=== PATIENT | female | born 1925 | race Caucasian/White ===

== ENCOUNTER → 2016-05-11 | Outpatient (CLI) | payer OTHER ==
[~2016-05-11] MED LIST: ACET-1311 PO; ACET650S10 RE; ASPCH81 PO; ATOR10TA88 PO; ATRINS INH; BISA10SU3 PR; CHOL1000 PO; CLOP1TAB5 PO; CYAN10005 PO; METH4PAK PO; MRLP17 PO; OMEP20CA9 PO; OXYC1TAB3 PO; RSPODT5 PO; SNK PO; XPNINS1255 INH
[2016-05-11 10:16] LABS: HEMATOCRIT 37.8 % (37-47); MEAN CELL VOLUME 92.9 fL (80-100); MEAN CORPUSCULAR HEMOGLOBIN 31.4 pg (25-34); MEAN CORPUSCULAR HGB CONC 33.9 g/dl (32-36); MEAN PLATELET VOLUME 11.9 fL (7.4-10.4); PLATELET COUNT 204 K/uL (130-400); RED BLOOD COUNT 4.07 M/uL (4.2-5.4); WHITE BLOOD COUNT 5.08 K/uL (4.8-10.8)
[2016-05-11 10:25] LABS: ALT/SGPT 16 U/L (12-78); BLOOD UREA NITROGEN 25 mg/dl (7-18); BUN/CREATININE RATIO 25.2 (10-20); CALCIUM 9.6 mg/dl (8.5-10.1); CARBON DIOXIDE 24 mmol/L (21-32); CHLORIDE 105 mmol/L (98-107); CREATININE 0.99 mg/dl (0.60-1.20); GLUCOSE 87 mg/dl (70-99); POTASSIUM 4.3 mmol/L (3.5-5.1); SODIUM 139 mmol/L (136-145)
[2016-05-11 10:35] LABS: ALKALINE PHOSPHATASE 65 U/L (45-117); AST/SGOT 19 U/L (15-37)
--- NOTE | 2016-05-25 13:47 | CODING QUERY MEDICAL NECESSITY ---
CQSUPPORTING DIAGNOSIS NEEDED A supporting diagnosis is required for the test/procedure performed on this patient in order for us to be reimbursed by the patient's insurance. Please provide a supporting diagnosis for the following test/procedure listed below next to the test name along with your signature. *If there is no additional diagnosis for this patient that would support the following test/procedure please document that below next to the test/procedure. Test(s)/Procedure(s) that require a supporting diagnosis: DOS 05/08/16 VITAMIN B12 Provider Signature: Date: Thank you Hillary Gross [employer] Once completed, please kindly fax back to [phone] For questions please call [phone]
== END ==
LOC: C.LABFOXDH 09:41
PROVIDERS: ATTEND Internal Medicine
DX: F06.8 Other specified mental disorders due to known physiological condition (principal); D51.8 Other vitamin B12 deficiency anemias

== ENCOUNTER → 2016-06-22 | Outpatient (CLI) | payer OTHER ==
[~2016-06-22] MED LIST changes: +ATOR10TA82 PO; -ATOR10TA88 PO
== END | disposition home or self-care (01) ==
LOC: C.LABFOXDH 16:37
PROVIDERS: ATTEND Internal Medicine
DX: N30.00 Acute cystitis without hematuria (principal)

== ENCOUNTER → 2016-07-14 | Outpatient (CLI) | payer OTHER ==
[2016-07-14 09:39] LABS: BASO % 0.7 %; BASO ABS # 0.04 K/uL (0-0.2); COMPLETE YES; HEMATOCRIT 38.1 % (37-47); LYMPH ABS # 1.55 K/uL (1.2-3.4); MEAN CORPUSCULAR HEMOGLOBIN 30.4 pg (25-34); MEAN CORPUSCULAR HGB CONC 33.1 g/dl (32-36); MEAN PLATELET VOLUME 11.4 fL (7.4-10.4); MONO % 9.7 %; NEUT % 57.6 %; PLATELET COUNT 216 K/uL (130-400); RED BLOOD COUNT 4.14 M/uL (4.2-5.4); WHITE BLOOD COUNT 5.34 K/uL (4.8-10.8)
[2016-07-14 09:49] LABS: CALCIUM 9.4 mg/dl (8.5-10.1)
[2016-07-14 09:54] LABS: BLOOD UREA NITROGEN 21 mg/dl (7-18); CARBON DIOXIDE 26 mmol/L (21-32); CHLORIDE 108 mmol/L (98-107); GLUCOSE 91 mg/dl (70-99); POTASSIUM 3.8 mmol/L (3.5-5.1); SODIUM 141 mmol/L (136-145)
== END | disposition home or self-care (01) ==
LOC: C.LABFOXDH 09:22
PROVIDERS: ATTEND Internal Medicine
DX: R41.82 Altered mental status, unspecified (principal)

== ENCOUNTER → 2016-07-15 | Outpatient (CLI) | payer OTHER | END | disposition home or self-care (01) | LOC: C.LABFOXDH 09:24 | PROVIDERS: ATTEND Internal Medicine | DX: R41.82 Altered mental status, unspecified (principal) ==

== ENCOUNTER → 2016-07-22 | Outpatient (CLI) | payer OTHER ==
[~2016-07-22] MED LIST changes: +OPTIRAY 320 IV PRN
--- NOTE | 2016-07-22 11:29 | DIAGNOSTIC IMAGING REPORT ---
HEAD CT WITH AND WITHOUT INTRAVENOUS CONTRAST HISTORY: MEMORY LOSS TECHNIQUE: Multiaxial CT images of the head were performed both before and after the intravenous administration of contrast. COMPARISON STUDY: None. FINDINGS: Old bilateral cerebellar infarcts, right greater than left. Old bilateral thalamic infarcts. Mild atrophic changes within the brain. There is no mass, hematoma, midline shift, or acute infarct. Extensive periventricular white matter hypodensity. This is nonspecific but favors advanced microvascular ischemic change. The calvarium and skull base are intact. Paranasal sinuses and mastoid air cells are clear. No abnormal enhancement. IMPRESSION: 1. No acute intracranial abnormality. 2. Old infarcts as described above. 3. Presumed advanced microvascular ischemic changes. Electronically signed by: Dereje Levin M.D. 07/22/2016 11:27 AM Dictated Date/Time: 07/22/2016 11:23 AM
== END ==
LOC: C.CTS 11:05
PROVIDERS: ATTEND Nurse Practitioner Family
DX: R41.0 Disorientation, unspecified (principal); R26.9 Unspecified abnormalities of gait and mobility

== ENCOUNTER 2016-07-23 13:48 | Inpatient (IN) | payer OTHER ==
[~2016-07-23] VITALS: Ht 134.6 cm; Wt 40.0 kg
[2016-07-23] MEDS ORDERED: OXYCODONE HCL IR 5 MG TAB (IMMEDIATE RELEASE) PO STA (14:37)
--- NOTE | 2016-07-23 14:41 | EMERGENCY ROOM VISIT NOTE ---
History Report prepared by Anita: Danilo Martin Under the Supervision of: Dr. Tulio Nicholson D.O. First contact with patient: 14:18 Chief Complaint: HEADACHE Stated Complaint: HEADACHE History of Present Illness The patient is an 89 year old female who presents to the Emergency Room from [facility] with complaints of episodes of headaches that started 2 days ago. Per the patient's sister, when the headache attack hits, the patient's whole body jerks and it is like the patient is being struck with a lightning bolt. The patient's headache is localized on her left side, and during the attacks, the patient clenches her left eye. The episodes last around 30 seconds , and she is continuing to have them intermittently. She cannot lift her arms or legs during the attacks. The patient has also been having abdominal pain for 2 days. Per the nursing staff, the patient started being treated for a UTI 4 days ago. She is normally confused, but has been more confused recently, so she had a CT scan. The scan revealed "aging". 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 She has hypertension. Source of History: patient, family, nursing staff Onset: 2 days ago Position: head (left side) Symptom Intensity: whole body jerks and it is like patient is being struck by lightning bolt when headache comes on Timing: other (intermittent episodes) Associated Symptoms: + abdominal pain Note: Associated symptoms: Clinches left eye during attacks, cannot raise arms or legs during attacks. More confused than normal recently. Review of Systems See HPI for pertinent positives & negatives. A total of 10 systems reviewed and were otherwise negative. Past Medical & Surgical Medical Problems: (1) Confusion (2) HTN (hypertension) Family History Family history omitted secondary to patient's advanced age. Social History Smoking Status: Never Smoker Marital Status: Housing Status: intermediate Occupation Status: retired Current/Historical Medications Scheduled Atorvastatin (Lipitor), 10 MG PO DAILY Cholecalciferol (Vitamin D3), 1 TAB PO WK Clopidogrel Bisulfate (Plavix), 75 MG PO DAILY Cyanocobalamin (Vitamin B-12), 1,000 MCG PO DAILY Methylprednisolone (Medrol Dosepak), 0 PO DAILY Omeprazole (Prilosec), 20 MG PO DAILY Scheduled PRN Acetaminophen (Tylenol), 1 SUPP RE Q4H PRN for Pain or Fever Acetaminophen (Tylenol), 650 MG PO Q4H PRN for Pain or Fever Bisacodyl (Dulcolax), 1 SUPP VA Q2D PRN for Constipation Oxycodone Ir (Roxicodone Ir), 0.5-1 TAB PO Q4H PRN for Severe Pain Allergies Coded Allergies: No Known Allergies (Unverified , 07/23/16) Physical Exam Vital Signs Date Time Temp Pulse Resp B/P Pulse Ox O2 Delivery O2 Flow Rate FiO2 07/23/16 14:38 81 07/23/16 14:02 88 Room Air 07/23/16 14:02 88 Room Air 07/23/16 13:54 36.1 84 17 160/94 92 Nasal Cannula 2.0 Physical Exam GENERAL: Patient is awake, alert, somewhat anxious appearing. EYES: The conjunctivae are clear. The pupils are round and reactive. EARS, NOSE, MOUTH AND THROAT: The nose is without any evidence of any deformity. Mucous membranes are moist tongue is midline. Tenderness over left temporal artery. Left temporal artery appeared enlarged compared to right. NECK: The neck is nontender and supple. RESPIRATORY: Normal respiratory effort is noted there is no evidence of wheezing rhonchi or rales CARDIOVASCULAR: Regular rate and rhythm noted there no murmurs rubs or gallops normal S1 normal S2 GASTROINTESTINAL: The abdomen is soft. Bowel sounds are present in all quadrants. Abdomen is nontender MUSCULOSKELETAL/EXTREMITIES: There is no evidence of gross deformity full range of motion is noted in the hips and shoulders SKIN: There is no obvious evidence of any rash. There are no petechiae, pallor or cyanosis noted. NEUROLOGIC: Patient is awake alert and oriented x3 strength is symmetric. Medical Decision & Procedures ER Provider Diagnostic Interpretation: CT results as stated below per my review and radiologist interpretation. HEAD CTA HISTORY: Mental status change mental status change TECHNIQUE: Multiaxial CT images of the head were performed both before and after the intravenous administration of contrast to evaluate the major cerebral vessels. Maximum intensity projection images were also obtained. COMPARISON: 07/22/2016 FINDINGS: There is no mass, hematoma, midline shift, or acute infarct. Visualized intracranial internal carotid arteries, distal vertebral arteries, and basilar artery are widely patent. There is no significant stenosis, occlusion, or aneurysm seen within the bilateral ACAs,. Partial truncation of the distal arterial vessels left middle cerebral arterial distribution. Age of this finding is uncertain.. Considerable chronic small vessel change. Multiple old periventricular infarct unchanged in the prior study. No new or interval finding. No significant postcontrast enhancement. IMPRESSION: No significant stenosis, occlusion, or aneurysm within the [place] of [place]. Mild truncation of the peripheral vasculature of the left middle cerebral arterial distribution of indeterminate age. Compromised exam due to considerable patient motion.. Considerable chronic small vessel change. No acute intracranial abnormality. No change from the prior study. Electronically signed by: James Key M.D. 07/23/2016 4:23 PM Dictated Date/Time: 07/23/2016 4:[address] SCAN OF THE ABDOMEN AND PELVIS WITHOUT IV CONTRAST CLINICAL HISTORY: Right-sided abdominal pain. COMPARISON STUDY: No priors. TECHNIQUE: CT scan of the abdomen and pelvis is performed from the lung bases to the proximal femora. Images are reviewed in the axial, sagittal, and coronal planes. IV contrast was not administered for this examination as per the referring clinician. Note that the examination was performed in suboptimal fashion without oral and IV contrast. Automated dose control exposure was utilized. The examination is significantly degraded by motion artifact. CT DOSE: 2282.49 mGy.cm FINDINGS: Lung bases: The heart is enlarged and without pericardial effusion. The coronary arteries are densely calcified. There is diminished attenuation of the cardiac blood pool as compared to the myocardium suggesting anemia. 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 There is bibasilar scarring versus atelectasis. No airspace consolidation or pleural effusion is identified. Liver: The unenhanced liver is normal in size, contour, and attenuation. Fatty infiltration is suggested adjacent to the falciform ligament. There is no intrahepatic biliary ductal dilatation. Gallbladder: Unremarkable. Spleen: Normal in size and attenuation. Pancreas: Atrophic and grossly unremarkable but not well assessed. Adrenal glands: Unremarkable. Kidneys: The unenhanced kidneys are atrophic. There is mild bilateral hydroureteronephrosis, possibly related to the distended bladder. No obstructing lesion or calculus is identified. No kidney stones are seen. There is no evidence of contour deforming renal mass lesion. Abdominal vasculature: The abdominal aorta is normal in course and caliber noting moderate to advanced atherosclerotic calcification. Bowel: There are postoperative changes from sigmoid colon resection with colocolonic anastomosis. No bowel obstruction is seen. There is moderate to severe constipation. The appendix is not clearly identified. Peritoneum: There is no intraperitoneal free air or abdominal ascites. Lymphadenopathy: None. Pelvic viscera: The bladder is distended but otherwise grossly unremarkable. The uterus is surgically absent. No adnexal lesion is seen. Skeletal structures: The skeletal structures are osteopenic. No lytic or blastic lesions are seen. There is moderate to advanced lumbosacral spondylosis. Sclerotic change is noted in the pubic symphysis. IMPRESSION: 1. Suboptimal examination without oral and IV contrast. The examination is also significantly degraded by motion artifact. 2. Moderate to severe constipation. No bowel obstruction is identified. 3. The bladder is distended. 4. There is mild bilateral hydroureteronephrosis, possibly related to the distended bladder. No renal calculus or obstructing lesion is clearly seen. 5. Cardiomegaly. 6. There is aneurysmal dilatation of the partially imaged ascending thoracic aorta which measures up to 4.1 cm. 7. Additional findings as above. Electronically signed by: Charlie Griffin M.D. 07/23/2016 4:24 PM Dictated Date/Time: 07/23/2016 4:18 PM Laboratory Results 07/23/16 15:12 Red Blood Count 4.51, Mean Corpuscular Volume 91.4, Mean Corpuscular Hemoglobin 30.2, Mean Corpuscular Hemoglobin Concent 33.0, Mean Platelet Volume 11.4, Neutrophils (%) (Auto) 68.9, Lymphocytes (%) (Auto) 21.6, Monocytes (%) (Auto) 7.6, Eosinophils (%) (Auto) 1.3, Basophils (%) (Auto) 0.5, Neutrophils # (Auto) 5.35, Lymphocytes # (Auto) 1.68, Monocytes # (Auto) 0.59, Eosinophils # (Auto) 0.10, Basophils # (Auto) 0.04 07/23/16 15:12 Test 07/23/16 14:20 07/23/16 15:12 Urine Color ORANGE Urine Appearance CLEAR (CLEAR) Urine pH 7.0 (4.5-7.5) Urine Specific [place] 1.009 (1.000-1.030) Urine Protein NEG (NEG) Urine Glucose (UA) NEG (NEG) Urine Ketones NEG (NEG) Urine Occult Blood NEG (NEG) Urine Nitrite NEG (NEG) Urine Bilirubin NEG (NEG) Urine Urobilinogen NEG (NEG) Urine Leukocyte Esterase TRACE (NEG) Urine WBC (Auto) 1-5 /hpf (0-5) Urine RBC (Auto) 0-4 /hpf (0-4) Urine Hyaline Casts (Auto) 1-5 /lpf (0-5) Urine Epithelial Cells (Auto) 20-30 /lpf (0-5) Urine Bacteria (Auto) NEG (NEG) White Blood Count 7.77 K/uL (4.8-10.8) Red Blood Count 4.51 M/uL (4.2-5.4) Hemoglobin 13.6 g/dL (12.0-16.0) Hematocrit 41.2 % (37-47) Mean Corpuscular Volume 91.4 fL (80-100) Mean Corpuscular Hemoglobin 30.2 pg (25-34) Mean Corpuscular Hemoglobin Concent 33.0 g/dl (32-36) Platelet Count 213 K/uL (130-400) Mean Platelet Volume 11.4 fL (7.4-10.4) Neutrophils (%) (Auto) 68.9 % Lymphocytes (%) (Auto) 21.6 % Monocytes (%) (Auto) 7.6 % Eosinophils (%) (Auto) 1.3 % Basophils (%) (Auto) 0.5 % Neutrophils # (Auto) 5.35 K/uL (1.4-6.5) Lymphocytes # (Auto) 1.68 K/uL (1.2-3.4) Monocytes # (Auto) 0.59 K/uL (0.11-0.59) Eosinophils # (Auto) 0.10 K/uL (0-0.5) Basophils # (Auto) 0.04 K/uL (0-0.2) RDW Standard Deviation 45.3 fL (36.4-46.3) RDW Coefficient of Variation 13.6 % (11.5-14.5) Immature Granulocyte % (Auto) 0.1 % Immature Granulocyte # (Auto) 0.01 K/uL (0.00-0.02) Erythrocyte Sedimentation Rate 9 mm/hr (0-21) Prothrombin Time 10.7 SECONDS (9.0-12.0) Prothromb Time International Ratio 1.0 (0.9-1.1) Activated Partial Thromboplast Time 24.7 SECONDS (21.0-31.0) Partial Thromboplastin Ratio 1.0 Anion Gap 6.0 mmol/L (3-11) Est Creatinine Clear Calc Drug Dose 23.1 ml/min Estimated GFR () 63.2 Estimated GFR (Non- 54.5 BUN/Creatinine Ratio 15.6 (10-20) Calcium Level 9.2 mg/dl (8.5-10.1) Total Bilirubin 0.4 mg/dl (0.2-1) Direct Bilirubin 0.1 mg/dl (0-0.2) Aspartate Amino Transf (AST/SGOT) 18 U/L (15-37) Alanine Aminotransferase (ALT/SGPT) 18 U/L (12-78) Alkaline Phosphatase 80 U/L (45-117) Troponin I 0.027 ng/ml (0-0.045) C-Reactive Protein < 0.29 mg/dl (0-0.29) Total Protein 7.2 gm/dl (6.4-8.2) Albumin 3.6 gm/dl (3.4-5.0) Lipase 305 U/L (73-393) Laboratory results per my review. Medications Administered Medications (Trade) Dose Ordered Sig/Álvaro Route Start Time Stop Time Status Last Admin Dose Admin Pantoprazole Sodium/Syringe (Protonix Inj/ Syringe) 10 ml @ 5 mls/min NOW ONCE IV 07/23/16 14:45 07/23/16 14:46 DC 07/23/16 14:45 5 MLS/MIN Dexamethasone Sodium Phosphate (Decadron Inj) 10 mg NOW ONCE IV 07/23/16 14:45 07/23/16 14:46 DC 07/23/16 14:45 10 MG Oxycodone HCl (Roxicodone Immediate Rel Tab) 5 mg NOW STAT PO 07/23/16 14:37 07/23/16 14:38 DC 07/23/16 14:37 5 MG ECG Indication: other (headache) Rate (beats per minute): 84 Rhythm: sinus rhythm Findings: 1st degree AV block, no ectopy, other (no acute ST segment abnormalities) Comparison ECG Date: no prior available ED Course 1430: The patient was evaluated in room B7. A complete history and physical examination were performed. 1437: Ordered Roxicodone Immediate Rel Tab 5 mg PO. 1445: Ordered Decadron Inj 10 mg IV, Pantoprazole Sodium 40mg/Syringe 10 ml @ 5 mls/min IV. 1649: I reevaluated the patient and told her that we are waiting to talk to the neurologist. 1724: I discussed the patient with Dr. Getachew BARNEY neurology - she wants the patient to get an MRI. 1733: I talked to the patient's daughter, and she would like the patient to have an MRI. 1800: The patient was signed out to Dr. Lin at the end of shift. Medical Decision Prior records/ancillary studies reviewed. Triage Nursing notes reviewed and agree them. Differential diagnosis: Etiologies such as migraine headache, meningitis, sinusitis, CO exposure, ICH, SAH, infection, tumor, headache, sinus thrombosis, arterial dissection, as well as others were entertained. The patient is an 89-year-old female who presented to the emergency department for an evaluation of headache. She had very acute short bursts of headache which appeared to be over the left temporal region. There was no signs of shingles. The patient did appear to have significant tenderness over the left temporal artery. A family member stated that the patient had a similar condition. When she still lives in [place] and was treated with steroids. The patient was treated with pain medication IV steroids and Protonix in the emergency Department. She was reevaluated multiple times. I discussed the patient's laboratory and radiographic studies with her and her family members. I also discussed his case with the on-call papo Soriano neurologist. 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 It is also possible is represent early shingles or possibly even trigeminal neuralgia. At the request of the neurologist. An MRI was ordered. This is pending at the time of dictation. Patient was signed out to the evening. Your physician. Please see her note for final plan and disposition. Consults Time Called: 1710 Consulting Physician: Dr. Getachew BARNEY neurology Returned Call: 1724 I discussed the patient with Dr. Getachew BARNEY neurology - she wants the patient to get an MRI. Impression Primary Impression: Headache Scribe Attestation The scribe's documentation has been prepared under my direction and personally reviewed by me in its entirety. I confirm that the note above accurately reflects all work, treatment, procedures, and medical decision making performed by me. Departure Information Dispostion Still a Patient (signed out to Dr. Lin) Prescriptions Oxycodone Ir (Roxicodone Ir) 5 Mg Tab 0.5-1 TAB PO Q4H Y for Severe Pain, #20 TAB Prov: Tulio Nicholson, DO 07/23/16 Omeprazole (PRILOSEC) 20 Mg Cap 20 MG PO DAILY, #30 CAP Prov: Tulio Nicholson, DO 07/23/16 Methylprednisolone (MEDROL DOSEPAK) 4 Mg Jj 0 PO DAILY, #1 PKT Prov: Tulio Nicholson, DO 07/23/16 Referrals Dennis Heredia M.D. (PCP) Patient Instructions My [facility] Problem Qualifiers Primary Impression: Headache Headache type: unspecified Headache chronicity pattern: episodic headache Intractability: not intractable Qualified Codes: R51 - Headache
[2016-07-23] MEDS ORDERED: OPTIRAY 320 IV PRN (14:45)
[2016-07-23] MEDS ORDERED: DEXAMETHASONE SOD INJ 10 MG/ML VIAL IV ONE (14:45)
[2016-07-23] MEDS ORDERED: PANTOprazole INJ 40 MG in SYRINGE 0 ML IV ONE (14:45)
[2016-07-23 14:54] LABS: URINE APPEARANCE CLEAR (CLEAR); URINE BILIRUBIN NEG (NEG); URINE COLOR ORANGE; URINE EPITHELIAL CELL AUTO 20-30 /lpf (0-5); URINE NITRITE NEG (NEG); URINE SPECIFIC GRAVITY 1.009 (1.000-1.030); UROBILINOGEN NEG (NEG)
[2016-07-23 14:55] LABS: MANUAL MICROSCOPIC REQUIRED? NO; REVIEW REQ? NO
[2016-07-23 15:21] LABS: BASO % 0.5 %; BASO ABS # 0.04 K/uL (0-0.2); COMPLETE YES; EOS % 1.3 %; HEMATOCRIT 41.2 % (37-47); IG% 0.1 %; LYMPH % 21.6 %; LYMPH ABS # 1.68 K/uL (1.2-3.4); MEAN CELL VOLUME 91.4 fL (80-100); MEAN CORPUSCULAR HEMOGLOBIN 30.2 pg (25-34); MEAN PLATELET VOLUME 11.4 fL (7.4-10.4); MONO % 7.6 %; NEUT % 68.9 %; PLATELET COUNT 213 K/uL (130-400); RED BLOOD COUNT 4.51 M/uL (4.2-5.4); WHITE BLOOD COUNT 7.77 K/uL (4.8-10.8)
[2016-07-23 15:30] LABS: PROTHROMBIN TIME (PATIENT) 10.7 SECONDS (9.0-12.0)
[2016-07-23 15:39] LABS: ALT/SGPT 18 U/L (12-78); AST/SGOT 18 U/L (15-37); BLOOD UREA NITROGEN 15 mg/dl (7-18); BUN/CREATININE RATIO 15.6 (10-20); CALCIUM 9.2 mg/dl (8.5-10.1); CARBON DIOXIDE 28 mmol/L (21-32); CHLORIDE 106 mmol/L (98-107); CREATININE 0.93 mg/dl (0.60-1.20); GLUCOSE 98 mg/dl (70-99); POTASSIUM 3.5 mmol/L (3.5-5.1); SODIUM 140 mmol/L (136-145)
[2016-07-23 15:44] LABS: ALKALINE PHOSPHATASE 80 U/L (45-117); C-REACTIVE PROTEIN < 0.29 mg/dl (0-0.29)
[2016-07-23] MEDS ORDERED: CHOL1000 PO (16:23)
[2016-07-23] MEDS ORDERED: ACET-1311 PO (16:23)
[2016-07-23] MEDS ORDERED: CLOP1TAB5 PO (16:23)
[2016-07-23] MEDS ORDERED: CYAN10005 PO (16:23)
[2016-07-23] MEDS ORDERED: BISA10SU3 PR (16:23)
[2016-07-23] MEDS ORDERED: ATOR10TA82 PO (16:23)
[2016-07-23] MEDS ORDERED: ACET650S10 RE (16:23)
--- NOTE | 2016-07-23 16:25 | DIAGNOSTIC IMAGING REPORT ---
HEAD CTA HISTORY: Mental status change mental status change TECHNIQUE: Multiaxial CT images of the head were performed both before and after the intravenous administration of contrast to evaluate the major cerebral vessels. Maximum intensity projection images were also obtained. COMPARISON: 07/22/2016 FINDINGS: There is no mass, hematoma, midline shift, or acute infarct. Visualized intracranial internal carotid arteries, distal vertebral arteries, and basilar artery are widely patent. There is no significant stenosis, occlusion, or aneurysm seen within the bilateral ACAs,. Partial truncation of the distal arterial vessels left middle cerebral arterial distribution. Age of this finding is uncertain.. Considerable chronic small vessel change. Multiple old periventricular infarct unchanged in the prior study. No new or interval finding. No significant postcontrast enhancement. IMPRESSION: No significant stenosis, occlusion, or aneurysm within the [place] of [place]. Mild truncation of the peripheral vasculature of the left middle cerebral arterial distribution of indeterminate age. Compromised exam due to considerable patient motion.. Considerable chronic small vessel change. No acute intracranial abnormality. No change from the prior study. Electronically signed by: James Key M.D. 07/23/2016 4:23 PM Dictated Date/Time: 07/23/2016 4:20 PM
--- NOTE | 2016-07-23 16:26 | DIAGNOSTIC IMAGING REPORT ---
CT SCAN OF THE ABDOMEN AND PELVIS WITHOUT IV CONTRAST CLINICAL HISTORY: Right-sided abdominal pain. COMPARISON STUDY: No priors. TECHNIQUE: CT scan of the abdomen and pelvis is performed from the lung bases to the proximal femora. Images are reviewed in the axial, sagittal, and coronal planes. IV contrast was not administered for this examination as per the referring clinician. Note that the examination was performed in suboptimal fashion without oral and IV contrast. Automated dose control exposure was utilized. The examination is significantly degraded by motion artifact. CT DOSE: 2282.49 mGy.cm FINDINGS: Lung bases: The heart is enlarged and without pericardial effusion. The coronary arteries are densely calcified. There is diminished attenuation of the cardiac blood pool as compared to the myocardium suggesting anemia. 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 There is bibasilar scarring versus atelectasis. No airspace consolidation or pleural effusion is identified. Liver: The unenhanced liver is normal in size, contour, and attenuation. Fatty infiltration is suggested adjacent to the falciform ligament. There is no intrahepatic biliary ductal dilatation. Gallbladder: Unremarkable. Spleen: Normal in size and attenuation. Pancreas: Atrophic and grossly unremarkable but not well assessed. Adrenal glands: Unremarkable. Kidneys: The unenhanced kidneys are atrophic. There is mild bilateral hydroureteronephrosis, possibly related to the distended bladder. No obstructing lesion or calculus is identified. No kidney stones are seen. There is no evidence of contour deforming renal mass lesion. Abdominal vasculature: The abdominal aorta is normal in course and caliber noting moderate to advanced atherosclerotic calcification. Bowel: There are postoperative changes from sigmoid colon resection with colocolonic anastomosis. No bowel obstruction is seen. There is moderate to severe constipation. The appendix is not clearly identified. Peritoneum: There is no intraperitoneal free air or abdominal ascites. Lymphadenopathy: None. Pelvic viscera: The bladder is distended but otherwise grossly unremarkable. The uterus is surgically absent. No adnexal lesion is seen. Skeletal structures: The skeletal structures are osteopenic. No lytic or blastic lesions are seen. There is moderate to advanced lumbosacral spondylosis. Sclerotic change is noted in the pubic symphysis. IMPRESSION: 1. Suboptimal examination without oral and IV contrast. The examination is also significantly degraded by motion artifact. 2. Moderate to severe constipation. No bowel obstruction is identified. 3. The bladder is distended. 4. There is mild bilateral hydroureteronephrosis, possibly related to the distended bladder. No renal calculus or obstructing lesion is clearly seen. 5. Cardiomegaly. 6. There is aneurysmal dilatation of the partially imaged ascending thoracic aorta which measures up to 4.1 cm. 7. Additional findings as above. Electronically signed by: Charlie Griffin M.D. 07/23/2016 4:24 PM Dictated Date/Time: 07/23/2016 4:18 PM
[2016-07-23] MEDS ORDERED: METH4PAK PO (17:44)
[2016-07-23] MEDS ORDERED: OXYC1TAB3 PO (17:44)
[2016-07-23] MEDS ORDERED: OMEP20CA9 PO (17:44)
[2016-07-23] MEDS ORDERED: LORAZEPAM 2 MG/ML 1 ML VIAL IV STA (18:11)
--- NOTE | 2016-07-23 20:03 | EMERGENCY ROOM VISIT NOTE ---
ED Visit Note This case was signed out to me at change of shift awaiting MRI of the brain. Unfortunately, the patient is unable to have the MRI completed as she became extremely anxious and had uncontrolled behavior. Upon my evaluation of the patient, she seems extremely agitated and reaching for things that are not there. They had difficulty keeping her in the bed. This may be as a result of the benzodiazepine and steroid that the patient received earlier. I discussed the case with the [facility] Hospitalist and they will violate the patient for further care and neurology consultation.
[2016-07-23] MEDS ORDERED: ACETAMINOPHEN 325 MG TAB PO PRN (21:00)
[2016-07-23] MEDS ORDERED: ENOXAPARIN 40 MG/0.4 ML SYR SQ SCH (21:00)
[2016-07-23] MEDS ORDERED: ONDANSETRON INJ 2 MG/ML 2 ML VIAL IV PRN (21:00)
--- NOTE | 2016-07-23 21:08 | History and Physical ---
History & Physical Date & Time of Service: July 23, 2016 at 20:53 Chief Complaint: Headache Primary Care Physician: Dennis Heredia M.D. History of Present Illness Source: patient, family, hospital records Mrs Corea is an 89 year old female in assisted living from [facility] who usually mobilizes with a walker who presents to the ER with altered mental status, unresponsive episode, abdominal pain and headache. She cannot give me a history due to ongoing confusion but can tell me she currently is not having any headache or abdominal pain. History take from her sister and brother sitting at bedside. Initially her symptoms started with a headache 2 days previously when she would intermittently hold the left side of her headache which would last for around 30 seconds which she previously described as like being hit by a lightening bolt. She underwent a CT head yesterday for these symptoms which showed old infarcts and advanced microvascular changes only. She has had a previous diagnosis of giant cell arteritis but is unable to tell me if it similar to her symptoms when previously diagnosed with this. She was recently treated for a UTI (07/06/16 was mixed michael, unclear whether this was the sample that was treated) and sinus infection in the last month. In the ER she had a CTA head did not show anything to explain her headache and CT A/P showed bladder distension and severe constipation but otherwise non acute findings. Her case was discussed with the [employer] [facility] neurologist who recommended MRI but she was unfortunately unable to undergo this due to her confusion. Her family report her headaches have improved since receiving Decadron but her confusion is much worse now than earlier in the day ( she received an opiate and benzodiazepine to help her have an MRI). 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 Social History Smoking Status: Never Smoker Smokeless Tobacco Use: No Alcohol Use: none Drug Use: none Marital Status: Occupational Status: retired Allergies Coded Allergies: No Known Allergies (Unverified , 07/23/16) Home Medications Scheduled Atorvastatin (Lipitor), 10 MG PO DAILY Cholecalciferol (Vitamin D3), 1 TAB PO WK Clopidogrel Bisulfate (Plavix), 75 MG PO DAILY Cyanocobalamin (Vitamin B-12), 1,000 MCG PO DAILY Methylprednisolone (Medrol Dosepak), 0 PO DAILY Omeprazole (Prilosec), 20 MG PO DAILY Scheduled PRN Acetaminophen (Tylenol), 1 SUPP RE Q4H PRN for Pain or Fever Acetaminophen (Tylenol), 650 MG PO Q4H PRN for Pain or Fever Bisacodyl (Dulcolax), 1 SUPP ME Q2D PRN for Constipation Oxycodone Ir (Roxicodone Ir), 0.5-1 TAB PO Q4H PRN for Severe Pain Review of Systems taken from family Constitutional: No chills, No fever Eyes: No worsening of vision ENT: + hearing loss (chronic) Respiratory: No cough, No shortness of breath, No sputum Cardiovascular: No chest pain, No edema Abdomen: + pain, No GI bleeding, No constipation, No diarrhea, No nausea, No vomiting Musculoskeletal: No joint pain, No muscle pain Genitourinary - Female: No dysuria, No urinary frequency, No urinary incontinence, No urinary retention, No urinary urgency Neurologic: + balance problems, + memory loss, + weakness (left sided from previous stroke) Endocrine: No fatigue Hematologic / Lymphatic: No abnormal bleeding/bruising Integumentary: No rash Physical Exam Vital Signs Date Time Temp Pulse Resp B/P Pulse Ox O2 Delivery O2 Flow Rate FiO2 07/23/16 18:31 94 07/23/16 14:38 81 07/23/16 14:02 88 Room Air 07/23/16 14:02 88 Room Air 07/23/16 13:54 36.1 84 17 160/94 92 Nasal Cannula 2.0 General Appearance: + mild distress (moving around in bed, appears confused), + thin Head: normocephalic, atraumatic Neck: supple, trachea midline Respiratory/Chest: chest non-tender, lungs clear, normal breath sounds, no respiratory distress, no accessory muscle use Cardiovascular: regular rate, rhythm, no edema, no murmur, normal peripheral pulses Abdomen/GI: normal bowel sounds, soft, + tenderness (generalized, no rebound or guarding) Back: no CVA tenderness Extremities/Musculoskelatal: no calf tenderness, normal capillary refill, no pedal edema Neurologic/Psych: no motor/sensory deficits (unable to perform detailed exam due to patient cognition and confusion but is moving around in bed using all 4 limbs, noted Hx of left residual weakness following stroke but isn't grossly apparent), alert, + disoriented, + pertinent finding (large bulging tender temoral artery on left side, normal on right side) Skin: normal color, warm/dry, no rash Diagnostics Laboratory Results Results Past 24 Hours Test 07/23/16 14:20 07/23/16 15:12 Range/Units Urine Color ORANGE Urine Appearance CLEAR CLEAR Urine pH 7.0 4.5-7.5 Urine Specific [place] 1.009 1.000-1.030 Urine Protein NEG NEG Urine Glucose (UA) NEG NEG Urine Ketones NEG NEG Urine Occult Blood NEG NEG Urine Nitrite NEG NEG Urine Bilirubin NEG NEG Urine Urobilinogen NEG NEG Urine Leukocyte Esterase TRACE NEG Urine WBC (Auto) 1-5 0-5 /hpf Urine RBC (Auto) 0-4 0-4 /hpf Urine Hyaline Casts (Auto) 1-5 0-5 /lpf Urine Epithelial Cells (Auto) 20-30 0-5 /lpf Urine Bacteria (Auto) NEG NEG White Blood Count 7.77 4.8-10.8 K/uL Red Blood Count 4.51 4.2-5.4 M/uL Hemoglobin 13.6 12.0-16.0 g/dL Hematocrit 41.2 37-47 % Mean Corpuscular Volume 91.4 80-100 fL Mean Corpuscular Hemoglobin 30.2 25-34 pg Mean Corpuscular Hemoglobin Concent 33.0 32-36 g/dl Platelet Count 213 130-400 K/uL Mean Platelet Volume 11.4 7.4-10.4 fL Neutrophils (%) (Auto) 68.9 % Lymphocytes (%) (Auto) 21.6 % Monocytes (%) (Auto) 7.6 % Eosinophils (%) (Auto) 1.3 % Basophils (%) (Auto) 0.5 % Neutrophils # (Auto) 5.35 1.4-6.5 K/uL Lymphocytes # (Auto) 1.68 1.2-3.4 K/uL Monocytes # (Auto) 0.59 0.11-0.59 K/uL Eosinophils # (Auto) 0.10 0-0.5 K/uL Basophils # (Auto) 0.04 0-0.2 K/uL RDW Standard Deviation 45.3 36.4-46.3 fL RDW Coefficient of Variation 13.6 11.5-14.5 % Immature Granulocyte % (Auto) 0.1 % Immature Granulocyte # (Auto) 0.01 0.00-0.02 K/uL Erythrocyte Sedimentation Rate 9 0-21 mm/hr Prothrombin Time 10.7 9.0-12.0 SECONDS Prothromb Time International Ratio 1.0 0.9-1.1 Activated Partial Thromboplast Time 24.7 21.0-31.0 SECONDS Partial Thromboplastin Ratio 1.0 Sodium Level 140 136-145 mmol/L Potassium Level 3.5 3.5-5.1 mmol/L Chloride Level 106 98-107 mmol/L Carbon Dioxide Level 28 21-32 mmol/L Anion Gap 6.0 3-11 mmol/L Blood Urea Nitrogen 15 7-18 mg/dl Creatinine 0.93 0.60-1.20 mg/dl Est Creatinine Clear Calc Drug Dose 23.1 ml/min Estimated GFR () 63.2 Estimated GFR (Non- 54.5 BUN/Creatinine Ratio 15.6 10-20 Random Glucose 98 70-99 mg/dl Calcium Level 9.2 8.5-10.1 mg/dl Total Bilirubin 0.4 0.2-1 mg/dl Direct Bilirubin 0.1 0-0.2 mg/dl Aspartate Amino Transf (AST/SGOT) 18 15-37 U/L Alanine Aminotransferase (ALT/SGPT) 18 12-78 U/L Alkaline Phosphatase 80 45-117 U/L Troponin I 0.027 0-0.045 ng/ml C-Reactive Protein < 0.29 0-0.29 mg/dl Total Protein 7.2 6.4-8.2 gm/dl Albumin 3.6 3.4-5.0 gm/dl Lipase 305 73-393 U/L Diagnostic Radiology CT SCAN OF THE ABDOMEN AND PELVIS WITHOUT IV CONTRAST CLINICAL HISTORY: Right-sided abdominal pain. COMPARISON STUDY: No priors. TECHNIQUE: CT scan of the abdomen and pelvis is performed from the lung bases to the proximal femora. Images are reviewed in the axial, sagittal, and coronal planes. IV contrast was not administered for this examination as per the referring clinician. Note that the examination was performed in suboptimal fashion without oral and IV contrast. Automated dose control exposure was utilized. The examination is significantly degraded by motion artifact. CT DOSE: 2282.49 mGy.cm FINDINGS: Lung bases: The heart is enlarged and without pericardial effusion. The coronary arteries are densely calcified. There is diminished attenuation of the cardiac blood pool as compared to the myocardium suggesting anemia. 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 There is bibasilar scarring versus atelectasis. No airspace consolidation or pleural effusion is identified. Liver: The unenhanced liver is normal in size, contour, and attenuation. Fatty infiltration is suggested adjacent to the falciform ligament. There is no intrahepatic biliary ductal dilatation. Gallbladder: Unremarkable. Spleen: Normal in size and attenuation. Pancreas: Atrophic and grossly unremarkable but not well assessed. Adrenal glands: Unremarkable. Kidneys: The unenhanced kidneys are atrophic. There is mild bilateral hydroureteronephrosis, possibly related to the distended bladder. No obstructing lesion or calculus is identified. No kidney stones are seen. There is no evidence of contour deforming renal mass lesion. Abdominal vasculature: The abdominal aorta is normal in course and caliber noting moderate to advanced atherosclerotic calcification. Bowel: There are postoperative changes from sigmoid colon resection with colocolonic anastomosis. No bowel obstruction is seen. There is moderate to severe constipation. The appendix is not clearly identified. Peritoneum: There is no intraperitoneal free air or abdominal ascites. Lymphadenopathy: None. Pelvic viscera: The bladder is distended but otherwise grossly unremarkable. The uterus is surgically absent. No adnexal lesion is seen. Skeletal structures: The skeletal structures are osteopenic. No lytic or blastic lesions are seen. There is moderate to advanced lumbosacral spondylosis. Sclerotic change is noted in the pubic symphysis. IMPRESSION: 1. Suboptimal examination without oral and IV contrast. The examination is also significantly degraded by motion artifact. 2. Moderate to severe constipation. No bowel obstruction is identified. 3. The bladder is distended. 4. There is mild bilateral hydroureteronephrosis, possibly related to the distended bladder. No renal calculus or obstructing lesion is clearly seen. 5. Cardiomegaly. 6. There is aneurysmal dilatation of the partially imaged ascending thoracic aorta which measures up to 4.1 cm. 7. Additional findings as above. Electronically signed by: Charlie Griffin M.D. 07/23/2016 4:24 PM Dictated Date/Time: 07/23/2016 4:18 PM HEAD CTA HISTORY: Mental status change mental status change TECHNIQUE: Multiaxial CT images of the head were performed both before and after the intravenous administration of contrast to evaluate the major cerebral vessels. Maximum intensity projection images were also obtained. COMPARISON: 07/22/2016 FINDINGS: There is no mass, hematoma, midline shift, or acute infarct. Visualized intracranial internal carotid arteries, distal vertebral arteries, and basilar artery are widely patent. There is no significant stenosis, occlusion, or aneurysm seen within the bilateral ACAs,. Partial truncation of the distal arterial vessels left middle cerebral arterial distribution. Age of this finding is uncertain.. Considerable chronic small vessel change. Multiple old periventricular infarct unchanged in the prior study. No new or interval finding. No significant postcontrast enhancement. IMPRESSION: No significant stenosis, occlusion, or aneurysm within the w[place] of [place]. Mild truncation of the peripheral vasculature of the left middle cerebral arterial distribution of indeterminate age. Compromised exam due to considerable patient motion.. Considerable chronic small vessel change. No acute intracranial abnormality. No change from the prior study. Electronically signed by: James Key M.D. 07/23/2016 4:23 PM Dictated Date/Time: 07/23/2016 4:20 PM EKG Sinus rhythm with 1st degree A-V block Possible Left atrial enlargement Left axis deviation Q waves in inferior leads No prior EKG available Impression Assessment and Plan 89 year old female admission for altered mental status, left sided headache, abdominal pain and unresponsive episode. Altered mental status / unresponsive episode - likely due to pain + constipation +/- urinary retention. Getting worse in the ER due to benzodiazepine, steroid + opiate with change of environment on the background of dementia (likely on a small vessel ischemic process - will get UA to assess for UTI - CXR to assess for pneumonia - Constipation treatment as below - one to one care as trying to pull out IV - IV fluids overnight for hydration - try to avoid benzodiazepines and opiates Headache - despite a normal ESR and CRP which I cannot explain this is otherwise definitive temporal arteritis and we will treat it as such given already a large improvement with Decadron. - Start methylprednisone 50 mg daily in the morning -> can be switched to oral prednisone 60 mg depending on her mental status during the day time - Consult neurology in morning as plan had been to get an MRI however she was unable to do this today. Abdominal pain - CT results and examination suggestive of moderate/severe constipation - Give glycerin supp. now + miralax, tomorrow can given hourly miralax until she has a large bowel movement as long as she does not have any nausea or vomiting. Family report passing small amount of stool today, no current N&V and no CT findings of obstruction. Urinary retention on CT and exam - likely due to constipation - straight cath now for urine sample - UA + micro +/- culture - Bladder scan as required, if PVR >200 ml would suggest need for tomlin catheter Abnormal EKG - no chest pain or shortness of breath but her O2 sats are around 88-90% on room air. She likely has moderate/severe coronary artery disease given CT head findings. Will repeat troponin and EKG in morning to make sure no acute event. No heart failure in Hx to suggest need for an echocardiogram. Hypoxia - 88-90% on room air with altered mental status. Will get CXR to assess for pneumonia. Although I suspect she chronically runs low given her age and lack of mobility but may be made worse with the abdominal pressure from constipation. VTE Prophylaxis - heparin 5000 units SQ Q12H Code - Full - should be fully discussed with patient during daylight hours as she does not have capacity to make this decision at present Disposition - observation status to med/surg. PT/OT/discharge planning Level of Care Med/Surg Resuscitation Status FULL RESUSCITATION VTE Prophylaxis VTE Risk Assessment Done? Y/N: Yes Risk Level: Moderate Given or contraindicated: Unfractionated heparin SQ Additional Copies To Dennis Heredia M.D. Resident Tracking Resident Involvement: Resident Care Provided Care Provided: Adult [facility] Medicine Assessment and Plan Attending Addendum: I have physically seen and examined this patient, have directed their medical care, have supervised the medical residents activities, and agree with the H&P as noted above, with the following changes: NONE
[2016-07-23] MEDS ORDERED: GLYCERIN ADULT 1 EA SUPP PR STA (21:09)
[2016-07-23] MEDS ORDERED: POLYETHYLENE (MIRALAX) 17 GM PACK PO ONE (21:09)
[2016-07-23] MEDS ORDERED: IV FLUIDS COMPLETED PRN (21:30)
[2016-07-23 21:51] VITALS: Ht 134.6 cm; Wt 40.0 kg
[2016-07-23 22:42] VITALS: BP 149/94; PULSE 88; TEMP 36.6; O2SAT 90
[2016-07-23] MEDS: NSS + 20MEQ KCL 1000ML 1,000 ML IV SCH (22:50)
[2016-07-23] MEDS: DICLOFENAC SOD 1% GEL 100 GM TUBE EXT SCH (22:57)
[2016-07-24 05:08] VITALS: O2SAT 93
[2016-07-24] MEDS ORDERED: MINERAL OIL ENEMA 133 ML BTL PR ONE (07:45)
--- NOTE | 2016-07-24 07:57 | Progress Note ---
Subjective Date of Service: July 24, 2016. Subjective pt is agitated but able to be redirected, has no focal issues other than headache, headache is described as dull bi frontal ache 3/10 that is not helped or worsened by anything Problem List Medical Problems: (1) Headache Status: Acute Review of Systems Constitutional: + fatigue, + weakness, No chills, No fever Eyes: No discharge, No eye pain, No redness, No worsening of vision ENT: No hearing loss, No sore throat Respiratory: No cough, No dyspnea on exertion, No shortness of breath, No sputum Cardiac: No PND, No chest pain, No edema, No orthopnea Abdomen: No diarrhea, No nausea, No pain, No vomiting Musculoskeletal: No joint pain Neurologic: No memory loss, No paralysis, No weakness Psychiatric: No anhedonism, No depression symptoms Objective Vital Signs Date Time Temp Pulse Resp B/P Pulse Ox O2 Delivery O2 Flow Rate FiO2 07/24/16 05:08 93 Room Air 07/23/16 22:42 36.6 88 18 149/94 90 Room Air 07/23/16 22:26 36.1 94 17 160/94 88 07/23/16 18:31 94 07/23/16 14:38 81 07/23/16 14:02 88 Room Air 07/23/16 14:02 88 Room Air 07/23/16 13:54 36.1 84 17 160/94 92 Nasal Cannula 2.0 Physical Exam General Appearance: WD/WN, + mild distress Eyes: PERRL, EOMI ENT: hearing grossly normal, pharynx normal Neck: supple, no adenopathy, no JVD Respiratory/Chest: chest non-tender, lungs clear, normal breath sounds Cardiovascular: regular rate, rhythm, + systolic murmur Abdomen: normal bowel sounds, non tender, soft Extremities: non-tender, no pedal edema Neurologic/Psychiatric: alert, + pertinent finding (restless, able to move all extremeties, no focal deficits, oriented to person and place) Skin: normal color, warm/dry, no rash Laboratory Results Last 24 Hours Test 07/23/16 14:20 07/23/16 15:12 07/24/16 04:44 Urine Color ORANGE Urine Appearance CLEAR Urine pH 7.0 Urine Specific [place] 1.009 Urine Protein NEG Urine Glucose (UA) NEG Urine Ketones NEG Urine Occult Blood NEG Urine Nitrite NEG Urine Bilirubin NEG Urine Urobilinogen NEG Urine Leukocyte Esterase TRACE Urine WBC (Auto) 1-5 /hpf Urine RBC (Auto) 0-4 /hpf Urine Hyaline Casts (Auto) 1-5 /lpf Urine Epithelial Cells (Auto) 20-30 /lpf Urine Bacteria (Auto) NEG White Blood Count 7.77 K/uL Red Blood Count 4.51 M/uL Hemoglobin 13.6 g/dL Hematocrit 41.2 % Mean Corpuscular Volume 91.4 fL Mean Corpuscular Hemoglobin 30.2 pg Mean Corpuscular Hemoglobin Concent 33.0 g/dl Platelet Count 213 K/uL Mean Platelet Volume 11.4 fL Neutrophils (%) (Auto) 68.9 % Lymphocytes (%) (Auto) 21.6 % Monocytes (%) (Auto) 7.6 % Eosinophils (%) (Auto) 1.3 % Basophils (%) (Auto) 0.5 % Neutrophils # (Auto) 5.35 K/uL Lymphocytes # (Auto) 1.68 K/uL Monocytes # (Auto) 0.59 K/uL Eosinophils # (Auto) 0.10 K/uL Basophils # (Auto) 0.04 K/uL RDW Standard Deviation 45.3 fL RDW Coefficient of Variation 13.6 % Immature Granulocyte % (Auto) 0.1 % Immature Granulocyte # (Auto) 0.01 K/uL Erythrocyte Sedimentation Rate 9 mm/hr Prothrombin Time 10.7 SECONDS Prothromb Time International Ratio 1.0 Activated Partial Thromboplast Time 24.7 SECONDS Partial Thromboplastin Ratio 1.0 Sodium Level 140 mmol/L Potassium Level 3.5 mmol/L Chloride Level 106 mmol/L Carbon Dioxide Level 28 mmol/L Anion Gap 6.0 mmol/L Blood Urea Nitrogen 15 mg/dl Creatinine 0.93 mg/dl Est Creatinine Clear Calc Drug Dose 23.1 ml/min Estimated GFR () 63.2 Estimated GFR (Non- 54.5 BUN/Creatinine Ratio 15.6 Random Glucose 98 mg/dl Calcium Level 9.2 mg/dl Total Bilirubin 0.4 mg/dl Direct Bilirubin 0.1 mg/dl Aspartate Amino Transf (AST/SGOT) 18 U/L Alanine Aminotransferase (ALT/SGPT) 18 U/L Alkaline Phosphatase 80 U/L Troponin I 0.027 ng/ml C-Reactive Protein < 0.29 mg/dl Total Protein 7.2 gm/dl Albumin 3.6 gm/dl Lipase 305 U/L Assessment and Plan 89 year old female admission for altered mental status, left sided headache, abdominal pain and unresponsive episode. 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
[2016-07-24] MEDS ORDERED: OLANZAPINE ZYDIS 5 MG ORALLY DIS. TAB PO ONE (08:30)
[2016-07-24] MEDS ORDERED: LORAZEPAM 2 MG/ML 1 ML VIAL IV PRN ×2 (08:30)
[2016-07-24] MEDS ORDERED: LORAZEPAM INJ 0.5 MG in SYRINGE 0.75 ML IV PRN (08:45)
[2016-07-24] MEDS ORDERED: LORAZEPAM INJ 1 MG in SYRINGE 0.5 ML IV PRN (08:45)
[2016-07-24] MEDS: DICLOFENAC SOD 1% GEL 100 GM TUBE EXT SCH ×2 (08:58→19:51)
[2016-07-24] MEDS: PANTOprazole SOD 40 MG TAB PO SCH (08:58)
[2016-07-24] MEDS: CHOLECALCIFEROL 1000 INTER.UNIT TAB PO SCH (08:59)
[2016-07-24] MEDS: CYANOCOBALAMIN 500 MCG TAB (VIT B-12) PO SCH (08:59)
[2016-07-24] MEDS: CLOPIDOGREL BISULFATE 75 MG TAB PO SCH (08:59)
[2016-07-24] MEDS ORDERED: ATORVASTATIN 10 MG TAB PO SCH (09:00)
[2016-07-24] MEDS ORDERED: METHYLPREDNISOLONE IV 50 MG in SYRINGE 0 ML IV SCH (09:00)
[2016-07-24] MEDS: POLYETHYLENE (MIRALAX) 17 GM PACK PO SCH ×2 (09:00→19:52)
[2016-07-24] MEDS: HEPARIN SOD 5000 UNIT/0.5 ML CARP SQ SCH ×2 (09:04→19:53)
--- NOTE | 2016-07-24 10:04 | DIAGNOSTIC IMAGING REPORT ---
CHEST ONE VIEW PORTABLE CLINICAL HISTORY: eval for pneumonia dyspnea COMPARISON STUDY: No previous studies for comparison. FINDINGS: The bones soft tissues and hemidiaphragms are normal. Mild cardiomegaly. The lungs are clear. The pulmonary vasculature is normal. IMPRESSION: Mild cardiomegaly. Otherwise negative study Electronically signed by: James Key M.D. 07/24/2016 10:03 AM Dictated Date/Time: 07/24/2016 10:02 AM
[2016-07-24 10:25] LABS: BUN/CREATININE RATIO 16.5 (10-20); CALCIUM 9.8 mg/dl (8.5-10.1); CREATININE 1.1 mg/dl (0.60-1.20); POTASSIUM 3.2 mmol/L (3.5-5.1)
[2016-07-24] MEDS: NSS + 20MEQ KCL 1000ML 1,000 ML IV SCH ×2 (10:52→19:14)
[2016-07-24] MEDS ORDERED: LORAZEPAM INJ 0.5 MG in SYRINGE 0.75 ML IV ONE (11:00)
[2016-07-24] MEDS ORDERED: NURSING VERBAL MED ORDER ONE ×2 (11:00→18:00)
--- NOTE | 2016-07-24 12:32 | Neurology Consultation ---
Neurology Consultation Date of Consultation: July 24, 2016. Attending Physician: Yoins Camargo M.D. Primary Care Physician: Dennis Heredia M.D. Reason for Consultation: Consultation for headache History of Present Illness Source: patient, family, hospital records This is a 89-year-old female who presented to the emergency room with new onset headache and altered mental status. Patient does have baseline dementia likely secondary to vascular etiologies with 2 previous strokes. Patient's sister said at baseline she does not always recognize her or is able to say her name. Patient had had some increased confusion for the last month believed to be secondary to UTI. Sister noted the sudden drop in function and increased confusion about a week ago. The patient has occasionally been having visual hallucinations of seeing her about her son. 3 days ago she started to have a new type of headache. Sister reports she is typically not headachy-type person has never had migraine headaches in the past. Reports that the headache is on the left side. Last for a few seconds. Can happen multiple times a day. It is severe in intensity and is like an electric shock. Sister reports that when she gets that she seems to be stiff all over and shake. She reports one episode that she witnessed that the patient seemed to be unresponsive for several seconds with her eyes closed. When the nurse tried to open up her eyes her eyes appear to be rolled back. Patient has never had any episodes in the past concerning for seizures. There has been no new weakness or numbness. Patient does have some residual right sided weakness from her previous stroke. Patient recently moved to an assisted living facility 2 months ago due to dementia and overall functional decline. The patient did receive benzos in the emergency room while trying to get MRI which seemed to make the patient's altered mental status worse. Family reports that she has not slept all night. Decadron was also given in the ER which may have helped her headaches some. Family reports that she has not complained about headaches this morning, but when I asked the patient she reports that she still has headaches. 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 Labs were reviewed. Unremarkable CBC and complete metabolic panel. Unremarkable UA. ESR was 9 and negative CRP. May labs were reviewed for cognitive workup and had a normal B12 level of 601 and TSH of 2.8. A CT of the head on the reported images were reviewed by myself. There is noted be old bilateral cerebellar strokes right greater than left and bilateral thalamic strokes CTA of the head done yesterday in the emergency room and noted mild truncation of the peripheral vascular in the left MCA territory. Abdominal CT noted bladder distention and constipation. This was done because the patient was also complaining of abdominal pain. In terms of her dementia symptoms the [facility] documentation notes that she is typically pleasantly confused with word finding at baseline. Sister reports that she is not always able to identify her or her name. Reports word finding issues. Typically walks with the assistance of a walker. Has been having recent visual hallucinations of people. Past Medical/Surgical History Medical Problems: (1) Headache Status: Acute Past medical history synthetic for left-sided giant cell arteritis in the past, recent UTI, dementia (appears at baseline to have advanced vascular type dementia), diastolic heart failure, hypertension, ataxic gait, B12 deficiency, dyslipidemia, and 2 previous strokes Family History Family history of CA Social History Patient has been living at [facility] for the past 2 months. Walks with the assistance of a walker. Has never smoked. No alcohol use. No illegal drug use. Smokeless Tobacco Use: No Alcohol Use: none Drug Use: none Marital Status: Housing Status: [facility] Occupation Status: retired Allergies Coded Allergies: No Known Allergies (Unverified , 07/23/16) Current Inpatient Medications Current Inpatient Medications Medications (Trade) Dose Ordered Sig/Álvaro Route Start Time Stop Time Status Last Admin Dose Admin Ioversol (Optiray 320) 125 ml UD PRN IV 07/23/16 14:45 07/27/16 14:44 Acetaminophen (Tylenol Tab) 650 mg Q4H PRN PO 07/23/16 21:00 08/22/16 20:59 Ondansetron HCl (Zofran Inj) 4 mg Q6H PRN IV 07/23/16 21:00 08/22/16 20:59 Diclofenac Sodium 1 appln 1 appln BID EXT 07/23/16 21:00 08/22/16 20:59 07/24/16 08:58 1 APPLN Potassium Chloride/Sodium Chloride (Nss + 20meq KCl 1000ml) 1,000 ml @ 100 mls/hr Q10H IV 07/23/16 22:45 08/22/16 22:44 5/19/17 10:52 100 MLS/HR Polyethylene (Miralax Powder Packet) 17 gm BID PO 07/24/16 09:00 08/23/16 08:59 07/24/16 09:00 17 GM Miscellaneous (Iv Fluids Completed) 1 ea PRN PRN N/A 07/23/16 21:30 07/23/17 21:29 Heparin Sodium (Porcine) 5000 unit 5,000 unit Q12 SQ 07/24/16 09:00 08/23/16 08:59 07/24/16 09:04 5,000 UNIT Methylprednisolone Sodium Succinate/ Syringe (Solu-Medrol IV/ Syringe) 0.8 ml @ 1.5 mls/min QAM IV 07/24/16 09:00 08/23/16 08:59 07/24/16 08:58 1.5 MLS/MIN Atorvastatin Calcium (Lipitor Tab) 10 mg DAILY PO 07/24/16 09:00 08/23/16 08:59 07/24/16 08:58 10 MG Cholecalciferol (Vitamin D Tab) 1,000 inter.unit QAM PO 07/24/16 09:00 08/23/16 08:59 07/24/16 08:59 1,000 INTER.UNIT Clopidogrel Bisulfate (plAVix TAB) 75 mg DAILY PO 07/24/16 09:00 08/23/16 08:59 07/24/16 08:59 75 MG Cyanocobalamin (Vitamin B-12 Tab) 1,000 mcg DAILY PO 07/24/16 09:00 08/23/16 08:59 07/24/16 08:59 1,000 MCG Pantoprazole Sodium 40 mg 40 mg QAM PO 07/24/16 09:00 08/23/16 08:59 07/24/16 08:58 40 MG Lorazepam 0.5 mg/ Syringe 1 ml @ 1 mls/min Q4 PRN IV 07/24/16 08:45 08/23/16 08:44 Lorazepam/Syringe (Ativan Inj/ Syringe) 1 ml @ 1 mls/min Q4 PRN IV 07/24/16 08:45 08/23/16 08:44 Review of Systems Complete review of systems otherwise negative except for the above noted in history of present illness Physical Exam Vital Signs (Past 24 Hrs): Date Time Temp Pulse Resp B/P Pulse Ox O2 Delivery O2 Flow Rate FiO2 07/24/16 08:00 Room Air 07/24/16 05:08 93 Room Air 07/23/16 22:42 36.6 88 18 149/94 90 Room Air 07/23/16 22:26 36.1 94 17 160/94 88 07/23/16 18:31 94 07/23/16 14:38 81 07/23/16 14:02 88 Room Air 07/23/16 14:02 88 Room Air 07/23/16 13:54 36.1 84 17 160/94 92 Nasal Cannula 2.0 Gen.: Patient is alert lying in bed in no acute distress HEENT: Normocephalic /atraumatic, no scleral icterus Heart: Regular rate and rhythm Extremities: No gross deformities or rashes noted Neurological examination: Mental status: Patient is alert only. She is not oriented to person place or time. History and examination is limited by mental status. The patient is frequently trying to get out of bed. Seems to have a difficult time paying attention to things on the right side. Speech is sparse but no specific dysarthria noted. Low voice volume. Cranial nerve: Funduscopic examination was not well visualized. Pupils equally round and reactive to light. Extraocular muscles intact without nystagmus. May have some right visual field defects to confrontation. No facial asymmetry noted. Patient reports decreased facial sensation on the right. Tongue is midline. Good palatal elevation. Good shoulder shrug bilaterally. Hearing grossly intact to voice. Strength: Patient appears to be moving all extremities antigravity and with some resistance although for strength examination was not obtainable secondary to mental status and cooperation Sensation: Patient reported decreased sensation on the right side to light touch Deep tendon reflexes: +1 in bilateral biceps, brachioradialis and patellar. Toes were equivocal to plantar stimulation Coordination: Formal testing not obtainable secondary to mental status but the patient was able to reach out and grab without any noticeable ataxia. Station within the bed was normal. Gait was not tested since the patient needs assistance of walker and due to mental status Laboratory Results Past 24 Hours: 07/23/16 15:12 Red Blood Count 4.51, Mean Corpuscular Volume 91.4, Mean Corpuscular Hemoglobin 30.2, Mean Corpuscular Hemoglobin Concent 33.0, Mean Platelet Volume 11.4, Neutrophils (%) (Auto) 68.9, Lymphocytes (%) (Auto) 21.6, Monocytes (%) (Auto) 7.6, Eosinophils (%) (Auto) 1.3, Basophils (%) (Auto) 0.5, Neutrophils # (Auto) 5.35, Lymphocytes # (Auto) 1.68, Monocytes # (Auto) 0.59, Eosinophils # (Auto) 0.10, Basophils # (Auto) 0.04 07/24/16 09:30 Test 07/23/16 14:20 07/23/16 15:12 07/24/16 09:30 Urine Color ORANGE Urine Appearance CLEAR (CLEAR) Urine pH 7.0 (4.5-7.5) Urine Specific [place] 1.009 (1.000-1.030) Urine Protein NEG (NEG) Urine Glucose (UA) NEG (NEG) Urine Ketones NEG (NEG) Urine Occult Blood NEG (NEG) Urine Nitrite NEG (NEG) Urine Bilirubin NEG (NEG) Urine Urobilinogen NEG (NEG) Urine Leukocyte Esterase TRACE (NEG) Urine WBC (Auto) 1-5 /hpf (0-5) Urine RBC (Auto) 0-4 /hpf (0-4) Urine Hyaline Casts (Auto) 1-5 /lpf (0-5) Urine Epithelial Cells (Auto) 20-30 /lpf (0-5) Urine Bacteria (Auto) NEG (NEG) White Blood Count 7.77 K/uL (4.8-10.8) Red Blood Count 4.51 M/uL (4.2-5.4) Hemoglobin 13.6 g/dL (12.0-16.0) Hematocrit 41.2 % (37-47) Mean Corpuscular Volume 91.4 fL (80-100) Mean Corpuscular Hemoglobin 30.2 pg (25-34) Mean Corpuscular Hemoglobin Concent 33.0 g/dl (32-36) Platelet Count 213 K/uL (130-400) Mean Platelet Volume 11.4 fL (7.4-10.4) Neutrophils (%) (Auto) 68.9 % Lymphocytes (%) (Auto) 21.6 % Monocytes (%) (Auto) 7.6 % Eosinophils (%) (Auto) 1.3 % Basophils (%) (Auto) 0.5 % Neutrophils # (Auto) 5.35 K/uL (1.4-6.5) Lymphocytes # (Auto) 1.68 K/uL (1.2-3.4) Monocytes # (Auto) 0.59 K/uL (0.11-0.59) Eosinophils # (Auto) 0.10 K/uL (0-0.5) Basophils # (Auto) 0.04 K/uL (0-0.2) RDW Standard Deviation 45.3 fL (36.4-46.3) RDW Coefficient of Variation 13.6 % (11.5-14.5) Immature Granulocyte % (Auto) 0.1 % Immature Granulocyte # (Auto) 0.01 K/uL (0.00-0.02) Erythrocyte Sedimentation Rate 9 mm/hr (0-21) Prothrombin Time 10.7 SECONDS (9.0-12.0) Prothromb Time International Ratio 1.0 (0.9-1.1) Activated Partial Thromboplast Time 24.7 SECONDS (21.0-31.0) Partial Thromboplastin Ratio 1.0 Total Bilirubin 0.4 mg/dl (0.2-1) Direct Bilirubin 0.1 mg/dl (0-0.2) Aspartate Amino Transf (AST/SGOT) 18 U/L (15-37) Alanine Aminotransferase (ALT/SGPT) 18 U/L (12-78) Alkaline Phosphatase 80 U/L (45-117) C-Reactive Protein < 0.29 mg/dl (0-0.29) Total Protein 7.2 gm/dl (6.4-8.2) Albumin 3.6 gm/dl (3.4-5.0) Lipase 305 U/L (73-393) Anion Gap 8.0 mmol/L (3-11) Est Creatinine Clear Calc Drug Dose 19.6 ml/min Estimated GFR () 51.5 Estimated GFR (Non- 44.5 BUN/Creatinine Ratio 16.5 (10-20) Calcium Level 9.8 mg/dl (8.5-10.1) Troponin I 0.020 ng/ml (0-0.045) Imaging As noted above in history of present illness Impression This is a 89-year-old female with subacute course of acute encephalopathy for 1 week and new onset brief neuralgiform headache on the left for 3 days. Etiology for encephalopathy could be numerous including baseline vascular dementia, recent UTI, medications, etc. Presentation is not classical or consistent with temporal arteritis with normal ESR and CRP. Certainly cannot rule out a pure [employer] vasculitis. Steroids do tend to help headaches in general. With a history of sudden decline and new onset headaches, need to rule out acute stroke. History concerning for possible seizure etiology includes description of some unresponsiveness, stiffening and shaking with her headache episodes Plan No narcotics, benzos, or other medications (such as Benadryl) that could cause delirium in an elderly man to patient. Recommend Seroquel or Risperdal if needed for agitation. Ativan tends to make the patient's encephalopathy worse. We'll see if we can obtain an EEG this afternoon to look for any seizure etiology to the patient's presentation Recommend trying MRI of the brain later on if the patient calms down to rule out acute stroke. If an MRI of the brain is not obtainable tonight or tomorrow morning, would recommend repeating a CT of the head and CTA of the brain to see if there is any structural developments that would correspond with vasculitis or stroke. Recommend treat headaches as needed with NSAIDs. Could consider gabapentin in the future, although this could worsen the patient's mental status. Alternatively could consider tricyclic antidepressants or carbamazepine if continues to get frequent neuralgiform headaches. At this time I like to avoid any prophylactic medications for headache as this could compound the patient's altered mental status. Okay to continue steroids for now Thank you for allowing me to participate in this patient's care. If there is any questions or concerns, feel free to call/page me.
[2016-07-24 12:49] LABS: URINE APPEARANCE CLEAR (CLEAR); URINE BILIRUBIN NEG (NEG); URINE COLOR YELLOW; URINE NITRITE NEG (NEG); URINE SPECIFIC GRAVITY 1.016 (1.000-1.030); UROBILINOGEN NEG (NEG)
[2016-07-24 13:01] LABS: MANUAL MICROSCOPIC REQUIRED? NO; REVIEW REQ? NO
[2016-07-24] MEDS ORDERED: OLANZAPINE 5 MG TAB PO PRN (14:30)
[2016-07-24 14:40] VITALS: BP 137/94; PULSE 101; TEMP 36.5
[2016-07-24] MEDS ORDERED: KETOROLAC TROMETHAMINE 15 MG/ML VIAL IV PRN (16:15)
[2016-07-24] MEDS ORDERED: POTASSIUM CHLORIDE 20 MEQ TABCR PO ONE (17:00)
[2016-07-24] MEDS ORDERED: CEFTRIAXONE SOD INJ 1 GM in DEXTROSE 5% ADD-VANTAGE 50ML 50 ML IV SCH (17:00)
[2016-07-24] MEDS ORDERED: HALOPERIDOL LACTATE 5 MG/ML 1 ML VIAL ONE (17:59)
--- NOTE | 2016-07-24 19:57 | DIAGNOSTIC IMAGING REPORT ---
Brain MRI WITHOUT CONTRAST HISTORY: Left-sided headache. TECHNIQUE: Multiplanar multisequence MRI of the brain was performed without the use of contrast. COMPARISON STUDY: Head CT 07/22/2016. FINDINGS: There is a 1 cm focus of restricted diffusion seen within the left posterior parietal lobe. This is consistent with a small acute infarct. There is motion artifact within the brain resulting in suboptimal evaluation. Extensive periventricular white matter T2 hyperintensity is nonspecific but favors advanced microvascular ischemic change. There is no mass, hematoma, or midline shift. The paranasal sinuses and left mastoid air cells are clear. There are few opacified right mastoid air cells. Multiple old infarcts seen within the cerebellar hemispheres and bilateral thalami. The major vascular flow voids at the skull base are maintained. Moderate atrophic changes within the brain. IMPRESSION: 1. A 1 cm acute infarct seen within the left posterior parietal lobe. 2. Atrophy and advanced microvascular ischemic changes are again noted. 3. Old infarcts as described above. Electronically signed by: Dereje Levin M.D. 07/24/2016 7:56 PM Dictated Date/Time: 07/24/2016 7:52 PM
[2016-07-24 20:00] VITALS: O2SAT 93
[2016-07-24] MEDS ORDERED: ASPIRIN 81 MG CHEW PO ONE (21:00)
--- NOTE | 2016-07-24 21:08 | DIAGNOSTIC IMAGING REPORT ---
BILATERAL CAROTID DOPPLER STUDY HISTORY: left parietal stroke COMPARISON: None. TECHNIQUE: Real-time, grayscale, and color Doppler sonography of the carotid arteries was performed. Imaging reviewed in the transverse and longitudinal planes. All measurements were calculated based on NASCET criteria. FINDINGS: Antegrade flow is seen in the bilateral vertebral arteries. Mild right and minimal left calcified plaque within the proximal internal carotid arteries. The peak systolic velocity within the right ICA is 23 cm/s. The right systolic ratio is 0.5. The peak systolic velocity within the left ICA is 23 cm/s. The left systolic ratio is 0.5. IMPRESSION: No hemodynamically significant stenosis seen within the carotid arteries. Diffusely low velocity waveforms raise the possibility of hypotension. Clinical correlation recommended. Electronically signed by: Dereje Levin M.D. 07/24/2016 9:06 PM Dictated Date/Time: 07/24/2016 9:04 PM
[2016-07-24 23:34] VITALS: BP 127/85; PULSE 88; TEMP 36.5; O2SAT 96
[2016-07-25] VITALS (11 sets, daily range): BP systolic 130–156; BP diastolic 86–88; PULSE 70–85; TEMP 36.1–36.9; O2SAT 69–96
[2016-07-25] MEDS: NSS + 20MEQ KCL 1000ML 1,000 ML IV SCH ×2 (04:39→14:53)
--- NOTE | 2016-07-25 08:39 | Progress Note ---
Subjective Date of Service: July 25, 2016. Subjective pt is obtunded from lack of sleep and multiple doses of medication to ease agitation. she arouses to stimulation, but easily sleeps, ROS is unable to be obtained today due to her lethargy. Problem List Medical Problems: (1) Headache Status: Acute Objective Vital Signs Date Time Temp Pulse Resp B/P Pulse Ox O2 Delivery O2 Flow Rate FiO2 07/25/16 08:00 36.9 78 16 152/88 95 Room Air 07/25/16 00:00 93 Room Air 2.0 07/24/16 23:34 36.5 88 16 127/85 96 Room Air 07/24/16 20:00 Room Air 07/24/16 20:00 93 Room Air 2.0 07/24/16 16:00 Room Air 07/24/16 14:40 36.5 101 18 137/94 Physical Exam General Appearance: WD/WN, + mild distress Neck: supple, no JVD Respiratory/Chest: chest non-tender, lungs clear Cardiovascular: regular rate, rhythm, no murmur Abdomen: normal bowel sounds, non tender, soft Extremities: no pedal edema, no calf tenderness Laboratory Results Last 24 Hours Test 07/24/16 09:30 07/24/16 12:30 Sodium Level 141 mmol/L Potassium Level 3.2 mmol/L Chloride Level 105 mmol/L Carbon Dioxide Level 28 mmol/L Anion Gap 8.0 mmol/L Blood Urea Nitrogen 18 mg/dl Creatinine 1.10 mg/dl Est Creatinine Clear Calc Drug Dose 19.6 ml/min Estimated GFR () 51.5 Estimated GFR (Non- 44.5 BUN/Creatinine Ratio 16.5 Random Glucose 113 mg/dl Calcium Level 9.8 mg/dl Troponin I 0.020 ng/ml Urine Color YELLOW Urine Appearance CLEAR Urine pH 7.0 Urine Specific [place] 1.016 Urine Protein 1+ Urine Glucose (UA) NEG Urine Ketones NEG Urine Occult Blood 2+ Urine Nitrite NEG Urine Bilirubin NEG Urine Urobilinogen NEG Urine Leukocyte Esterase NEG Urine WBC (Auto) 1-5 /hpf Urine RBC (Auto) 0-4 /hpf Urine Hyaline Casts (Auto) 1-5 /lpf Urine Epithelial Cells (Auto) 10-20 /lpf Urine Bacteria (Auto) NEG Assessment and Plan 89 year old female admission for altered mental status, left sided headache, abdominal pain and unresponsive episode. 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
[2016-07-25] MEDS ORDERED: PHARMACIST DISCHARGE MED REC CONSULT PRN (08:45)
[2016-07-25] MEDS: CLOPIDOGREL BISULFATE 75 MG TAB PO SCH (09:00)
[2016-07-25] MEDS ORDERED: ASPIRIN 325 MG ECTAB PO SCH (09:00)
[2016-07-25] MEDS ORDERED: ASPIRIN 81 MG CHEW PO SCH (09:00)
[2016-07-25] MEDS ORDERED: ATORVASTATIN 40 MG TAB PO SCH (09:00)
[2016-07-25] MEDS: CYANOCOBALAMIN 500 MCG TAB (VIT B-12) PO SCH (09:00)
[2016-07-25] MEDS: DICLOFENAC SOD 1% GEL 100 GM TUBE EXT SCH ×2 (09:00→21:00)
[2016-07-25] MEDS ORDERED: CLOPIDOGREL BISULFATE 75 MG TAB PO SCH (09:00)
[2016-07-25] MEDS: POLYETHYLENE (MIRALAX) 17 GM PACK PO SCH ×2 (09:00→22:01)
[2016-07-25] MEDS: CHOLECALCIFEROL 1000 INTER.UNIT TAB PO SCH (09:00)
[2016-07-25] MEDS: PANTOprazole SOD 40 MG TAB PO SCH (09:00)
[2016-07-25] MEDS: HEPARIN SOD 5000 UNIT/0.5 ML CARP SQ SCH ×2 (09:40→22:01)
[2016-07-25 10:49] LABS: BUN/CREATININE RATIO 20.5 (10-20); CALCIUM 9.1 mg/dl (8.5-10.1); CREATININE 0.88 mg/dl (0.60-1.20); MAGNESIUM 2.1 mg/dl (1.8-2.4); POTASSIUM 3.7 mmol/L (3.5-5.1)
--- NOTE | 2016-07-25 13:45 | Neurology Progress Notes ---
Neurology Progress Note Date of Service July 25, 2016. Subjective Spoke to family this morning. No significant neurological change. Did sleep better with antipsychotic that I ordered yesterday which was olanzapine. MRI of the brain reported images reviewed by myself. The patient has a 1 cm small acute to subacute ischemic stroke in the left parietal/occipital lobe. There is also numerous subcortical T2 hyperintensities likely indicating small vessel ischemic disease. Also noted old cerebellar and bilateral thalamic strokes. Per review of senior living medications patient was only on Plavix and not aspirin as an outpatient. Ultrasound of the carotid was unremarkable PT/OT/speech have been ordered. Objective Date Time Temp Pulse Resp B/P Pulse Ox O2 Delivery O2 Flow Rate FiO2 07/25/16 11:41 36.4 70 16 142/88 95 Room Air 07/25/16 09:25 95 Room Air 07/25/16 08:00 Room Air 07/25/16 08:00 36.9 78 16 152/88 95 Room Air 07/25/16 00:00 93 Room Air 2.0 07/24/16 23:34 36.5 88 16 127/85 96 Room Air 07/24/16 20:00 Room Air 07/24/16 20:00 93 Room Air 2.0 07/24/16 16:00 Room Air 07/24/16 14:40 36.5 101 18 137/94 Last 24 Hours Test 07/25/16 09:35 Sodium Level 147 mmol/L Potassium Level 3.7 mmol/L Chloride Level 112 mmol/L Carbon Dioxide Level 25 mmol/L Anion Gap 10.0 mmol/L Blood Urea Nitrogen 18 mg/dl Creatinine 0.88 mg/dl Est Creatinine Clear Calc Drug Dose 24.5 ml/min Estimated GFR () 67.5 Estimated GFR (Non- 58.3 BUN/Creatinine Ratio 20.5 Random Glucose 85 mg/dl Calcium Level 9.1 mg/dl Magnesium Level 2.1 mg/dl Exam: Patient was sleeping comfortably in bed this morning. No acute distress. Did not attempt to wake the patient up to examine her Current Inpatient Medications Medications (Trade) Dose Ordered Sig/Álvaro Route Start Time Stop Time Status Last Admin Dose Admin Ioversol (Optiray 320) 125 ml UD PRN IV 07/23/16 14:45 07/27/16 14:44 Acetaminophen (Tylenol Tab) 650 mg Q4H PRN PO 07/23/16 21:00 08/22/16 20:59 07/24/16 15:20 650 MG Ondansetron HCl (Zofran Inj) 4 mg Q6H PRN IV 07/23/16 21:00 08/22/16 20:59 Diclofenac Sodium 1 appln 1 appln BID EXT 07/23/16 21:00 08/22/16 20:59 07/24/16 19:51 1 APPLN Potassium Chloride/Sodium Chloride (Nss + 20meq KCl 1000ml) 1,000 ml @ 100 mls/hr Q10H IV 07/23/16 22:45 08/22/16 22:44 07/25/16 04:39 100 MLS/HR Polyethylene (Miralax Powder Packet) 17 gm BID PO 07/24/16 09:00 08/23/16 08:59 07/24/16 19:52 17 GM Miscellaneous (Iv Fluids Completed) 1 ea PRN PRN N/A 07/23/16 21:30 07/23/17 21:29 Heparin Sodium (Porcine) (Heparin Sq 5000 Unit/0.5ml) 5,000 unit Q12 SQ 07/24/16 09:00 08/23/16 08:59 07/24/16 19:53 5,000 UNIT Cholecalciferol (Vitamin D Tab) 1,000 inter.unit QAM PO 07/24/16 09:00 08/23/16 08:59 07/24/16 08:59 1,000 INTER.UNIT Clopidogrel Bisulfate (plAVix TAB) 75 mg DAILY PO 07/24/16 09:00 08/23/16 08:59 07/24/16 08:59 75 MG Cyanocobalamin (Vitamin B-12 Tab) 1,000 mcg DAILY PO 07/24/16 09:00 08/23/16 08:59 07/24/16 08:59 1,000 MCG Pantoprazole Sodium (Protonix Tab) 40 mg QAM PO 07/24/16 09:00 08/23/16 08:59 07/24/16 08:58 40 MG Olanzapine 5 mg 5 mg BID PRN PO 07/24/16 14:30 08/23/16 14:29 07/24/16 16:27 5 MG Ceftriaxone Sodium/Dextrose (Rocephin Inj/ Dextrose Add-[place] 50ML) 50 ml @ 100 mls/hr DAILY@1600 IV 07/24/16 17:00 07/29/16 15:59 07/24/16 16:42 100 MLS/HR Atorvastatin Calcium (Lipitor Tab) 40 mg DAILY PO 07/25/16 09:00 08/24/16 08:59 Aspirin (Ecotrin Tab) 325 mg QAM PO 07/25/16 09:00 08/24/16 08:59 Miscellaneous Information (Pharmacist Discharge Med Rec Consult) 1 ea UD PRN N/A 07/25/16 08:45 08/24/16 08:44 Impression This is a 89-year-old female with subacute encephalopathy and new onset headaches in the setting of a vascular dementia. 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 Etiology under investigation at this time. 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 Known stroke risk factors include hypertension, dyslipidemia, and 2 previous strokes. Plan Recommend echocardiogram and CTA of the neck for further evaluation of stroke etiology. I have initiated olanzapine last night for agitation as needed. Seroquel or Risperdal would be reasonable alternatives if olanzapine is ineffective or has side effects. No narcotics, benzos, or other medications (such as Benadryl) that could cause delirium in an elderly patient. Since there has been some fluctuation in mental status, would not be unreasonable to get an EEG Wednesday to make sure that there is no additional epileptic cause (EEG already ordered) If need be would recommend treating headaches with NSAIDs or limited narcotics if needed. Agree with discontinuation of steroids Follow-up PT/OT and speech therapies for discharge planning. Blood pressure recommendations while in hospital 175/95-150/80 Avoid hypotension and dehydration Stroke risk factor modifications and recommendations: Blood pressure recommendations for the first month post hospital discharge 150/ 90-130/80, and after that blood pressure recommendations 130/80-110/70 Total cholesterol goal 100- 200 and LDL goal less than 100 Hemoglobin A1c goal less than 7 Encourage exercise at least 3 times a week for 30 minutes. Follow-up in neurology clinic in 1 month for post stroke hospital follow-up. If no A. fib is detected in the hospital, would recommend an outpatient Holter monitor to rule out A. fib as this would change the patient's medical management. Thank you for allowing me to participate in this patient's care. If there is any questions or concerns, feel free to call/page me.
[2016-07-25] MEDS: SENNA 8.6 MG TAB PO SCH (21:59)
[2016-07-25] MEDS ORDERED: PIPERACILLIN/TAZOBACTAM 4.5 GM/100ML D5W IV STA (23:08)
[2016-07-25] MEDS ORDERED: ACETAMINOPHEN IV 100 ML IV PRN (23:15)
[2016-07-25] MEDS ORDERED: ONDANSETRON INJ 2 MG/ML 2 ML VIAL IV PRN (23:15)
[2016-07-25] MEDS ORDERED: VANCOMYCIN INJ 1,000 MG in SODIUM CHLORIDE 0.9% 250ML 250 ML IV STA (23:18)
--- NOTE | 2016-07-25 23:20 | Progress Note ---
Progress Note Date of Service July 25, 2016. Progress Note DOC SENIOR LIVING ADVISOR NOTE: I was called regarding the patient developing acute hypoxia with nursing concerns regarding aspiration. The patient had been already placed on a NRB mask to keep sats in the low 90's. HEENT - MM dry, Mask in place, PERRL. Does attempt to respond to questions. Neck - supple, no JVD or bruits Heart - tachy and regular Lungs- coarse breath sounds throughout Abdomen - normal bowel sounds and soft, NT and ND Extremity- no edema b/l, good distal pulses A/P: Probable aspiration pneumonia RLL- as seen on cxr..difficult to see due to rotation Make NPO Check ABG stop IVF's for now place on Vanco IV, Zosyn IV, Xopenex/Atrovent HFN's, Solumedrol change NRB mask to BIPAP transfer to the PCU.
[2016-07-25] MEDS ORDERED: VANCOMYCIN CONSULT ACTIVE PRN (23:30)
[2016-07-25] MEDS ORDERED: IPRATROPIUM BROMIDE NEB SOLN 0.02% 2.5 ML VIAL INH PRN (23:30)
[2016-07-25] MEDS ORDERED: LEVALBUTEROL 1.25MG/0.5ML NEB INH PRN (23:30)
[2016-07-25] MEDS ORDERED: PIPERACILL/TAZOBAC CONSULT ACTIVE PRN (23:30)
[2016-07-25] MEDS ORDERED: ACETAMINOPHEN IV 650 MG in EMPTY BAG 0 ML IV PRN (23:30)
[2016-07-25] MEDS ORDERED: PIPERACILL/TAZOBAC IV 3.375 GM in DEXTROSE 5% 100ML IV ONE (23:30)
[2016-07-25] MEDS ORDERED: IV FLUIDS COMPLETED PRN (23:45)
[2016-07-26] VITALS (14 sets, daily range): BP systolic 129–163; BP diastolic 70–106; PULSE 61–116; TEMP 36.2–36.7; O2SAT 86–98
[2016-07-26] MEDS: IPRATROPIUM BROMIDE NEB SOLN 0.02% 2.5 ML VIAL INH SCH ×4 (01:36→19:11)
[2016-07-26] MEDS: LEVALBUTEROL 1.25MG/0.5ML NEB INH SCH ×4 (01:36→19:11)
[2016-07-26] MEDS ORDERED: LEVALBUTEROL/IPRATROPIUM NEB INH SCH (03:00)
[2016-07-26] MEDS: PIPERACILL/TAZOBAC IV 3.375 GM in DEXTROSE 5% 100ML IV SCH ×3 (03:50→17:00)
[2016-07-26] MEDS ORDERED: PIPERACILL/TAZOBAC IV 3.375 GM in DEXTROSE 5% 100ML 100 ML IV SCH (06:00)
--- NOTE | 2016-07-26 07:28 | DIAGNOSTIC IMAGING REPORT ---
CHEST ONE VIEW PORTABLE HISTORY: possible aspiration - low O2 COMPARISON: Chest 07/24/2016. FINDINGS: Rotated study. The heart remains mildly enlarged. Tortuous thoracic aorta persists. No new focal lung consolidations. No evidence for pulmonary edema. No pleural effusions. No pneumothorax. IMPRESSION: Stable cardiomegaly. Electronically signed by: Dereje Levin M.D. 07/26/2016 7:26 AM Dictated Date/Time: 07/26/2016 7:26 AM
[2016-07-26 07:32] LABS: MEAN CORPUSCULAR HEMOGLOBIN 31.1 pg (25-34); MEAN CORPUSCULAR HGB CONC 33.4 g/dl (32-36); MEAN PLATELET VOLUME 11.9 fL (7.4-10.4); PLATELET COUNT 194 K/uL (130-400); RED BLOOD COUNT 4.41 M/uL (4.2-5.4); WHITE BLOOD COUNT 5.67 K/uL (4.8-10.8)
[2016-07-26 08:00] LABS: BUN/CREATININE RATIO 24.6 (10-20); CALCIUM 8.7 mg/dl (8.5-10.1); CREATININE 0.86 mg/dl (0.60-1.20); POTASSIUM 3.6 mmol/L (3.5-5.1)
[2016-07-26] MEDS ORDERED: ASPIRIN 81 MG ECTAB PO SCH (09:00)
[2016-07-26] MEDS: DICLOFENAC SOD 1% GEL 100 GM TUBE EXT SCH ×2 (09:48→20:55)
[2016-07-26] MEDS: SENNA 8.6 MG TAB PO SCH ×2 (09:49→20:48)
[2016-07-26] MEDS: HEPARIN SOD 5000 UNIT/0.5 ML CARP SQ SCH ×2 (09:50→21:28)
[2016-07-26] MEDS: PANTOprazole INJ 40 MG in SYRINGE 0 ML IV SCH (11:00)
--- NOTE | 2016-07-26 11:38 | Pharmacy Progress Note ---
Pharmacy Antibiotic Consult Date of Service: July 26, 2016. Pharmacy Dosing Scope Pharmacy is consulted to initiate Zosyn and Vancomycin IV dosing therapy, order appropriate labs and adjust drug dose/frequency. Subjective The patient is a 89 year old female admitted on July 23, 2016 at 21:04. Objective Height (Feet): 4 Height (Inches): 5.00 Weight (Kilograms): 42.900 Lab Results (24hrs): Test 07/26/16 06:43 White Blood Count 5.67 K/uL (4.8-10.8) Red Blood Count 4.41 M/uL (4.2-5.4) Hemoglobin 13.7 g/dL (12.0-16.0) Hematocrit 41.0 % (37-47) Mean Corpuscular Volume 93.0 fL (80-100) Mean Corpuscular Hemoglobin 31.1 pg (25-34) Mean Corpuscular Hemoglobin Concent 33.4 g/dl (32-36) RDW Standard Deviation 47.8 fL (36.4-46.3) RDW Coefficient of Variation 13.9 % (11.5-14.5) Platelet Count 194 K/uL (130-400) Mean Platelet Volume 11.9 fL (7.4-10.4) Sodium Level 143 mmol/L (136-145) Potassium Level 3.6 mmol/L (3.5-5.1) Chloride Level 111 mmol/L (98-107) Carbon Dioxide Level 25 mmol/L (21-32) Anion Gap 7.0 mmol/L (3-11) Blood Urea Nitrogen 21 mg/dl (7-18) Creatinine 0.86 mg/dl (0.60-1.20) Est Creatinine Clear Calc Drug Dose 24.4 ml/min Estimated GFR () 69.4 Estimated GFR (Non- 59.9 BUN/Creatinine Ratio 24.6 (10-20) Random Glucose 89 mg/dl (70-99) Calcium Level 8.7 mg/dl (8.5-10.1) Triglycerides Level 81 mg/dl (0-150) Cholesterol Level 183 mg/dl (0-200) HDL Cholesterol 92 mg/dl LDL Cholesterol, Calculated 75 mg/dl VLDL Cholesterol, Calculated 16 mg/dl Cholesterol/HDL Ratio 2.0 Micro Results: Item Value Date Time Urine Culture - Final Complete 07/24/16 1230 Urine,Catheterized NO GROWTH - LESS THAN 1,000 COLONIES/ML Assessment & Plan * 89 yo female with acute hypoxia on 07/25 and possible aspiration event. Pt now ordered Zosyn and Vancomycin to cover possibly PNA. Vancomycin * Pt received a loading dose of Vancomycin 1gm (23mg/kg) IV x 1 * Half life estimated to be 29 hours. Risk factors for accumulation including advanced age and poor kidney function. * Will initiate maintenance therapy with Vancomycin 650mg (15mg/kg) IV q24 hours. * Will obtain trough level prior to the 3rd maintenance dose on 07/29 at 0000. This level will be prior to reaching SS to r/o drug accumulation. Zosyn * Pt received bolus of Zosyn 3.375gm IV x 1 then continue Zosyn 3.375gm IV [id number] EI for pt with Crcl > 20 ml/min and BMI < 35kg/m2. Pharmacy will continue to follow and will adjust dose/frequency as necessary. Thank you
--- NOTE | 2016-07-26 12:05 | ECHOCARDIOGRAM REPORT ---
*NOTICE TO RECEIVING [employer]ENCY This information is strictly Confidential and protected under [place] law. [place] law prohibits you from making any further disclosure of this information unless further disclosure is expressly permitted by the written consent of the person to whom it pertains or is authorized by law. A general authorization for the release of medical or other information is not sufficient for this purpose. Hospital accepts no responsibility if the information is made available to any other person, INCLUDING THE PATIENT. Interpretation Summary * Name: MOODY DEWITT Study Date: 07/26/2016 06:42 AM BP: 156/79 mmHg * Patient Location: C.2E\S\E207\S\1 HR: 54 * : 1925 (M/d/yyyy) Gender: Female Height: 53 in * Age: 89 yrs Ethnicity: [place] Weight: 99 lb * Ordering Physician: Yonis Camargo * Referring Physician: No Doctor, Assigned * Performed By: Lois Amin RCS * * Reason For Study: CEREBRAL ISCHEMIA / EMBOLUS * BSA: 1.3 m2 * -- Conclusions -- * Technically limited study. * 1. Normal LV size. Mild concentric LVH. Grade I diastolic dysfunction. * 2. Normal LV systolic function. LVEF 55-60%. No regional wall motion abnormalities. * 3. Normal RV size. Borderline RV dysfunction. * 4. Mild aortic regurgitation. Trace MR. * 5. Normal estimated RA and PA pressures. * 6. No prior studies for comparison. Procedure Details * A complete two-dimensional transthoracic echocardiogram was performed (2D, M-mode, Doppler and color flow Doppler). * The study was technically difficult. * There were technical limitations due to patient'spoor positioning Left Ventricle * The left ventricle is grossly normal size. * There is mild concentric left ventricular hypertrophy. * Ejection Fraction = 55-60%. * No regional wall motion abnormalities noted. Right Ventricle * The right ventricle is grossly normal size. * The right ventricular systolic function is borderline reduced. Atria * The left atrial size is normal. * Right atrial size is normal. * No ASD detected; PFO is not assessed. Mitral Valve * The mitral valve is grossly normal. * The mitral valve leaflets appear thickened, but open well. * There is no mitral valve stenosis. * There is trace mitral regurgitation. Tricuspid Valve * The tricuspid valve is not well visualized, but is grossly normal. * There is no tricuspid stenosis. * There is trace tricuspid regurgitation. Aortic Valve * The aortic valve opens well. * The aortic valve is trileaflet. * No hemodynamically significant valvular aortic stenosis. * Mild aortic regurgitation. Pulmonic Valve * The pulmonary valve is inadequately visualized, but the Doppler data is adequate for interpretation. * There is no pulmonic valvular stenosis. * Trace pulmonic valvular regurgitation. Great Vessels * The aortic root and proximal ascending aorta are normal sized. Pericardium/Pleural * Trivial pericardial effusion Great Vessels * Normal inferior vena cava size and collapsability with sniff indicates a normal right atrial pressure of 3 mmHg * There is no evidence of pulmonary hypertension. The PA systolic pressure is less than 36 mmHg. Left Ventricular Diastolic Function * Grade I diastolic dysfunction, (abnormal relaxation pattern). MMode 2D Measurements and Calculations IVSd 1.3 cm IVSs 1.5 cm LVIDd 3.1 cm LVIDs 1.7 cm LVPWd 1.2 cm LVPWs 1.1 cm IVS/LVPW 1.1 FS 44.3 % EDV(Teich) 37.8 ml ESV(Teich) 8.7 ml EF(Teich) 76.9 % EDV(cubed) 29.7 ml ESV(cubed) 5.1 ml EF(cubed) 82.7 % % IVS thick 11.9 % % LVPW thick -3.78 % LV mass(C)d 120.0 grams LV mass(C)dI 94.8 grams/m\S\2 LV mass(C)s 63.2 grams LV mass(C)sI 49.9 grams/m\S\2 SV(Teich) 29.1 ml SI(Teich) 23.0 ml/m\S\2 SV(cubed) 24.5 ml SI(cubed) 19.4 ml/m\S\2 Ao root diam 3.3 cm Ao root area 8.6 cm\S\2 ACS 1.7 cm LA dimension 2.5 cm LA/Ao 0.74 Doppler Measurements and Calculations MV E max xochilt 67.4 cm/sec MV A max xochilt 111.1 cm/sec MV E/A 0.61 MV P1/2t max xochilt 62.6 cm/sec MV P1/2t 104.4 msec MVA(P1/2t) 2.1 cm\S\2 MV dec slope 175.6 cm/sec\S\2 MV dec time 0.31 sec Ao V2 max 102.7 cm/sec Ao max PG 4.2 mmHg Ao max PG (full) 0.94 mmHg AI max xochilt 344.1 cm/sec AI max PG 47.4 mmHg AI dec slope 126.9 cm/sec\S\2 AI P1/2t 794.6 msec LV V1 max PG 3.3 mmHg LV V1 max 90.6 cm/sec MR max xochilt 478.8 cm/sec MR max PG 91.7 mmHg TR max xochilt 197.3 cm/sec
[2016-07-26] MEDS ORDERED: OPTIRAY 320 IV PRN (12:45)
--- NOTE | 2016-07-26 12:54 | Neurology Progress Notes ---
Neurology Progress Note Date of Service July 26, 2016. Subjective Patient had a hypoxic episode last night concerning for possible aspiration. Patient was moved to a monitored bed. Appears to be doing better this morning. Not back to prehospital baseline. Olanzapine and antiplatelets were discontinued for unknown reason with bed transfer. Patient has no complaints this morning. No new neurological symptoms or concerns per family Total cholesterol 183, LDL 75, HDL 92, triglycerides 81, hemoglobin A1c is pending Creatinine 0.8 Echo showed some diastolic dysfunction with an EF of 55-60%. No cardioembolic sources for stroke Patient denies any current pain or headaches Objective Date Time Temp Pulse Resp B/P Pulse Ox O2 Delivery O2 Flow Rate FiO2 07/26/16 12:25 36.3 66 17 154/98 93 Room Air 07/26/16 08:09 36.7 61 14 134/70 97 Room Air 07/26/16 08:00 Room Air 07/26/16 07:33 77 20 97 BiPAP/CPAP 4.0 07/26/16 04:02 BiPAP 07/26/16 03:47 36.2 63 24 156/79 95 BiPAP 5.0 07/26/16 01:37 74 20 97 BiPAP/CPAP 6.0 07/26/16 01:36 74 97 6.0 07/26/16 00:02 BiPAP 07/25/16 23:55 36.7 73 18 156/88 96 Room Air 07/25/16 23:54 96 07/25/16 23:40 92 BiPAP 6.0 07/25/16 23:24 71 16 95 BiPAP 6.0 07/25/16 23:24 71 95 6.0 07/25/16 22:46 36.8 85 16 130/86 69 Room Air 07/25/16 16:05 36.3 96 Room Air 07/25/16 15:28 Room Air 07/25/16 15:24 36.1 76 18 143/88 90 Room Air Last 24 Hours Test 07/26/16 06:43 White Blood Count 5.67 K/uL Red Blood Count 4.41 M/uL Hemoglobin 13.7 g/dL Hematocrit 41.0 % Mean Corpuscular Volume 93.0 fL Mean Corpuscular Hemoglobin 31.1 pg Mean Corpuscular Hemoglobin Concent 33.4 g/dl RDW Standard Deviation 47.8 fL RDW Coefficient of Variation 13.9 % Platelet Count 194 K/uL Mean Platelet Volume 11.9 fL Sodium Level 143 mmol/L Potassium Level 3.6 mmol/L Chloride Level 111 mmol/L Carbon Dioxide Level 25 mmol/L Anion Gap 7.0 mmol/L Blood Urea Nitrogen 21 mg/dl Creatinine 0.86 mg/dl Est Creatinine Clear Calc Drug Dose 24.4 ml/min Estimated GFR () 69.4 Estimated GFR (Non- 59.9 BUN/Creatinine Ratio 24.6 Random Glucose 89 mg/dl Calcium Level 8.7 mg/dl Triglycerides Level 81 mg/dl Cholesterol Level 183 mg/dl HDL Cholesterol 92 mg/dl LDL Cholesterol, Calculated 75 mg/dl VLDL Cholesterol, Calculated 16 mg/dl Cholesterol/HDL Ratio 2.0 Exam: Gen.: Patient is alert lying in bed in no acute distress HEENT: Normocephalic /atraumatic, no scleral icterus Extremities: No gross deformities or rashes noted Neurological examination: Mental status: Patient is alert. She is not oriented to place or time. Patient appears calm and is no longer agitated. He appears to have better attention to things on the right side than she did initially. Speech is sparse but no specific dysarthria noted. Cranial nerve: Extraocular muscles intact without nystagmus. No facial asymmetry noted. Hearing grossly intact to voice. Strength: full strength in all extremities. No arm drift. Station within the bed was normal. Current Inpatient Medications Medications (Trade) Dose Ordered Sig/Álvaro Route Start Time Stop Time Status Last Admin Dose Admin Ioversol (Optiray 320) 125 ml UD PRN IV 07/23/16 14:45 07/27/16 14:44 Diclofenac Sodium (Voltaren 1% Top Gel) 1 appln BID EXT 07/23/16 21:00 08/22/16 20:59 07/26/16 09:48 1 APPLN Miscellaneous (Iv Fluids Completed) 1 ea PRN PRN N/A 07/23/16 21:30 07/23/17 21:29 Heparin Sodium (Porcine) (Heparin Sq 5000 Unit/0.5ml) 5,000 unit Q12 SQ 07/24/16 09:00 08/23/16 08:59 07/26/16 09:50 5,000 UNIT Miscellaneous Information (Pharmacist Discharge Med Rec Consult) 1 ea UD PRN N/A 07/25/16 08:45 08/24/16 08:44 Senna 17.2 mg 17.2 mg BID PO 07/25/16 21:00 08/24/16 20:59 07/26/16 09:49 17.2 MG Pantoprazole Sodium/Syringe (Protonix Inj/ Syringe) 10 ml @ 5 mls/min DAILY@11 IV 07/26/16 11:00 08/25/16 10:59 Ondansetron HCl 4 mg 4 mg Q6H PRN IV 07/25/16 23:15 08/24/16 23:14 Acetaminophen 100 ml @ 400 mls/hr Q8H PRN IV 07/25/16 23:15 08/24/16 23:14 Piperacillin Sod/ Tazobactam Sod/ Dextrose (Zosyn Iv/D5 100ml) 115 ml @ 28.75 mls/ hr Q8H IV 07/26/16 04:00 08/02/16 03:59 07/26/16 03:50 28.75 MLS/HR Piperacillin Sod/ Tazobactam Sod (Consult) 1 ea UD PRN N/A 07/25/16 23:30 08/24/16 23:29 Ipratropium [place] (Atrovent 0.02% 0.5MG/2.5ML Neb) 0.5 mg Q6R INH 07/26/16 03:00 08/25/16 02:59 07/26/16 07:33 0.5 MG Levalbuterol (Xopenex 1.25MG/ 0.5ML Neb) 1.25 mg Q6R INH 07/26/16 03:00 08/25/16 02:59 07/26/16 07:33 1.25 MG Ipratropium [place] (Atrovent 0.02% 0.5MG/2.5ML Neb) 0.5 mg Q2H PRN INH 07/25/16 23:30 08/24/16 23:29 Levalbuterol (Xopenex 1.25MG/ 0.5ML Neb) 1.25 mg Q2H PRN INH 07/25/16 23:30 08/24/16 23:29 Vancomycin HCl 1 ea 1 ea UD PRN N/A 07/25/16 23:30 08/24/16 23:29 Acetaminophen 650 mg/Empty Bag 65 ml @ 260 mls/hr Q6H PRN IV 07/25/16 23:30 08/24/16 23:29 Vancomycin HCl/ Sodium Chloride (Vancomycin Inj/ Nss 250ml) 263 ml @ 125 mls/hr Q24H IV 07/27/16 00:00 08/03/16 00:00 Impression This is a 89-year-old female with subacute encephalopathy and new onset headaches in the setting of a vascular dementia. 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 Etiology under investigation at this time. Residual neurological deficits include cognitive deficits. Has had noted trace weakness in the right previously due to to a past stroke. Known stroke risk factors include hypertension, dyslipidemia, and 2 previous strokes. Plan I have ordered a CTA of the neck for further evaluation of stroke etiology to rule out large vessel dissection or critical stenosis. Continue Plavix and aspirin 81 mg daily for secondary stroke prevention. In the future if there is any complications with bleeding or bruising, could consider alternative of Aggrenox. Would first try behavioral modification for confusion and agitation. If needed for severe agitation, recommend olanzapine, Seroquel or Risperdal. No benzos as this worsens patient's agitation. Caution with other medications ( such as Benadryl) that could cause delirium in an elderly patient. Since there has been some fluctuation in mental status, would not be unreasonable to get an EEG Wednesday to make sure that there is no additional epileptic cause (EEG already ordered) If need be, would recommend treating headaches with NSAIDs or limited narcotics if needed. Follow-up PT/OT and speech therapies for discharge planning. Appears to be recommending subacute rehabilitation at this time. Blood pressure recommendations while in hospital 175/95-150/80 Avoid hypotension and dehydration Stroke risk factor modifications and recommendations: Blood pressure recommendations for the first month post hospital discharge 150/ 90-130/80, and after that blood pressure recommendations 130/80-110/70 Total cholesterol goal 100- 200 and LDL goal less than 100 Hemoglobin A1c goal less than 7 Encourage exercise at least 3 times a week for 30 minutes. Follow-up in neurology clinic in 1 month for post stroke hospital follow-up. If no A. fib is detected in the hospital, would recommend an outpatient Holter monitor to rule out A. fib as this would change the patient's medical management. Thank you for allowing me to participate in this patient's care. If there is any questions or concerns, feel free to call/page me.
[2016-07-26] MEDS: ASPIRIN 81 MG ECTAB PO SCH (13:42)
[2016-07-26] MEDS: CLOPIDOGREL BISULFATE 75 MG TAB PO SCH (13:42)
--- NOTE | 2016-07-26 14:29 | DIAGNOSTIC IMAGING REPORT ---
NECK CTA HISTORY: Left parietal stroke. TECHNIQUE: Multiaxial CT images of the neck were performed following the intravenous administration of contrast to evaluate the major cervical vessels. Maximum intensity projection images were also obtained. All measurements were calculated based on NASCET criteria. COMPARISON STUDY: Carotid Doppler 07/24/2016. FINDINGS: The aortic arch and proximal great vessels are widely patent. There is no significant stenosis, occlusion, or dissection identified within the bilateral common carotid, internal carotid, or vertebral arteries. Mild calcified plaque within the bilateral carotid bulbs. IMPRESSION: No significant stenosis, occlusion, or dissection identified within the carotid or vertebral arteries. Electronically signed by: Dereje Levin M.D. 07/26/2016 2:28 PM Dictated Date/Time: 07/26/2016 2:25 PM
--- NOTE | 2016-07-26 15:25 | Progress Note ---
Subjective Date of Service: July 26, 2016. Subjective pt had acute hypoxic event overnight, unclear, maybe transient aspiration, today is awake and alert, less agitated but easily agitated, niece is at bedside and updated pt has no further headache, does not have vision changes and was able to drink water from a cup at bedside. she remembers the fact that she has had previous strokes and is disappointed she has additional ones Problem List Medical Problems: (1) Headache Status: Acute Review of Systems Constitutional: + fatigue, + weakness, No chills, No fever Respiratory: No cough, No shortness of breath Cardiac: No chest pain, No edema, No orthopnea Abdomen: No diarrhea, No nausea, No pain, No vomiting Female : No dysuria, No hematuria, No incontinence, No urinary frequency Psychiatric: + anxiety, No depression symptoms Objective Vital Signs Date Time Temp Pulse Resp B/P Pulse Ox O2 Delivery O2 Flow Rate FiO2 07/26/16 04:02 BiPAP 07/26/16 03:47 36.2 63 24 156/79 95 BiPAP 5.0 07/26/16 01:37 74 20 97 BiPAP/CPAP 6.0 07/26/16 01:36 74 97 6.0 07/26/16 00:02 BiPAP 07/25/16 23:55 36.7 73 18 156/88 96 Room Air 07/25/16 23:54 96 07/25/16 23:40 92 BiPAP 6.0 07/25/16 23:24 71 16 95 BiPAP 6.0 07/25/16 23:24 71 95 6.0 07/25/16 22:46 36.8 85 16 130/86 69 Room Air 07/25/16 16:05 36.3 96 Room Air 07/25/16 15:28 Room Air 07/25/16 15:24 36.1 76 18 143/88 90 Room Air 07/25/16 11:41 36.4 70 16 142/88 95 Room Air 07/25/16 09:25 95 Room Air 07/25/16 08:00 Room Air 07/25/16 08:00 36.9 78 16 152/88 95 Room Air Physical Exam General Appearance: no apparent distress, + thin Eyes: PERRL, EOMI ENT: hearing grossly normal, pharynx normal Neck: supple, no JVD Respiratory/Chest: chest non-tender, lungs clear, normal breath sounds Cardiovascular: regular rate, rhythm, no murmur Abdomen: normal bowel sounds, non tender, soft Extremities: no pedal edema, no calf tenderness Neurologic/Psychiatric: alert, + pertinent finding (oriented x2) Laboratory Results Last 24 Hours Test 07/25/16 09:35 07/26/16 06:43 Sodium Level 147 mmol/L Potassium Level 3.7 mmol/L Chloride Level 112 mmol/L Carbon Dioxide Level 25 mmol/L Anion Gap 10.0 mmol/L Blood Urea Nitrogen 18 mg/dl Creatinine 0.88 mg/dl Est Creatinine Clear Calc Drug Dose 24.5 ml/min Estimated GFR () 67.5 Estimated GFR (Non- 58.3 BUN/Creatinine Ratio 20.5 Random Glucose 85 mg/dl Calcium Level 9.1 mg/dl Magnesium Level 2.1 mg/dl White Blood Count 5.67 K/uL Red Blood Count 4.41 M/uL Hemoglobin 13.7 g/dL Hematocrit 41.0 % Mean Corpuscular Volume 93.0 fL Mean Corpuscular Hemoglobin 31.1 pg Mean Corpuscular Hemoglobin Concent 33.4 g/dl RDW Standard Deviation 47.8 fL RDW Coefficient of Variation 13.9 % Platelet Count 194 K/uL Mean Platelet Volume 11.9 fL Assessment and Plan 89 year old female admission for altered mental status, left sided headache, found to have left parietal acute ischemic CVA, developed hypoxia overnight - with concerns for aspiration Acute hypoxic respiratory failure, pt placed on bipap, CXR is rotated, no confirmed infiltrate, able to drink water at bedside, will have speech , but start on soft diet and resume po meds including antiplatelets and statin Encephalopathy acute delirium, MRI confirms 1 cm acute left parietal stroke, asa , plavix and statin, negative urine culture and cxr Constipation treatment ,senna and miralax 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
[2016-07-26] MEDS: ATORVASTATIN 40 MG TAB PO SCH (17:00)
--- NOTE | 2016-07-26 21:05 | DIAGNOSTIC IMAGING REPORT ---
CHEST ONE VIEW PORTABLE HISTORY: hypoxia COMPARISON: Chest 07/25/2016. FINDINGS: The heart remains mildly enlarged. Tortuous thoracic aorta, unchanged. The lungs are clear. No pleural effusions. No pneumothorax. IMPRESSION: No significant change compared to the prior study. No acute process. Electronically signed by: Dereje Levin M.D. 07/26/2016 9:04 PM Dictated Date/Time: 07/26/2016 9:02 PM
[2016-07-26 21:08] LABS: BASO % 0.4 %; BASO ABS # 0.03 K/uL (0-0.2); EOS % 0.6 %; HEMATOCRIT 43.2 % (37-47); IG% 0.1 %; LYMPH % 23.1 %; LYMPH ABS # 1.67 K/uL (1.2-3.4); MEAN CELL VOLUME 90.6 fL (80-100); MEAN CORPUSCULAR HEMOGLOBIN 29.8 pg (25-34); MEAN PLATELET VOLUME 11.5 fL (7.4-10.4); MONO % 7.6 %; NEUT % 68.2 %; PLATELET COUNT 216 K/uL (130-400); RED BLOOD COUNT 4.77 M/uL (4.2-5.4); WHITE BLOOD COUNT 7.24 K/uL (4.8-10.8)
[2016-07-26 21:10] LABS: COMPLETE YES; MEAN CORPUSCULAR HGB CONC 32.9 g/dl (32-36)
[2016-07-26 22:07] LABS: BLOOD UREA NITROGEN 20 mg/dl (7-18); BUN/CREATININE RATIO 15.4 (10-20); CHLORIDE 104 mmol/L (98-107); GLUCOSE 89 mg/dl (70-99); POTASSIUM 3.1 mmol/L (3.5-5.1)
[2016-07-26 22:19] LABS: CALCIUM 9.3 mg/dl (8.5-10.1); CARBON DIOXIDE 24 mmol/L (21-32); SODIUM 140 mmol/L (136-145)
--- NOTE | 2016-07-26 22:43 | Progress Note ---
Progress Note Date of Service July 26, 2016. Progress Note Acute onset hypoxia, dyspnea and sinus tachycardia secondary to aspiration vs anxiety? CXR- no acute process, EKG- no acute ischemic changes, BMP did reveal hypokalemia and JASWINDER- 40 meq K admin and NSS with 20 MEQ K @ 100cc/h was started Changed from non rebreather to Bipap and tolerating well and in less resp distress
[2016-07-26] MEDS: POTASSIUM CHLR 10 MEQ / WTR 10 MEQ in PREMIXED WATER 100 ML IV SCH ×2 (23:05→23:58)
[2016-07-26] MEDS: POTASSIUM CHLORIDE INJ 20 MEQ in SODIUM CHLORIDE 0.9% 1000ML 1,000 ML IV SCH (23:34)
[2016-07-27] VITALS (11 sets, daily range): BP systolic 103–151; BP diastolic 74–100; PULSE 75–114; TEMP 36.5–36.7; O2SAT 80–97
[2016-07-27] MEDS ORDERED: VANCOMYCIN INJ 650 MG in SODIUM CHLORIDE 0.9% 250ML 250 ML IV SCH ×2
[2016-07-27] MEDS: POTASSIUM CHLR 10 MEQ / WTR 10 MEQ in PREMIXED WATER 100 ML IV SCH ×2 (01:08→02:08)
[2016-07-27] MEDS: IPRATROPIUM BROMIDE NEB SOLN 0.02% 2.5 ML VIAL INH SCH ×4 (01:37→19:25)
[2016-07-27] MEDS: LEVALBUTEROL 1.25MG/0.5ML NEB INH SCH ×4 (01:37→19:25)
[2016-07-27] MEDS: PIPERACILL/TAZOBAC IV 3.375 GM in DEXTROSE 5% 100ML IV SCH ×3 (03:45→20:51)
[2016-07-27 07:14] LABS: ESTIMATED AVERAGE GLUCOSE 114 mg/dl; HA1C FLAG Normal (Normal)
[2016-07-27 08:26] LABS: BASO % 0.6 %; BASO ABS # 0.04 K/uL (0-0.2); COMPLETE YES; EOS % 0.4 %; HEMATOCRIT 43.3 % (37-47); IG% 0.1 %; LYMPH % 17.1 %; LYMPH ABS # 1.23 K/uL (1.2-3.4); MEAN CORPUSCULAR HEMOGLOBIN 30.8 pg (25-34); MEAN CORPUSCULAR HGB CONC 34.2 g/dl (32-36); MEAN PLATELET VOLUME 11.4 fL (7.4-10.4); MONO % 5.8 %; PLATELET COUNT 222 K/uL (130-400); RED BLOOD COUNT 4.81 M/uL (4.2-5.4)
[2016-07-27] MEDS: DICLOFENAC SOD 1% GEL 100 GM TUBE EXT SCH ×2 (08:30→20:11)
[2016-07-27] MEDS: ASPIRIN 81 MG ECTAB PO SCH (08:30)
[2016-07-27] MEDS: SENNA 8.6 MG TAB PO SCH ×2 (08:31→20:52)
[2016-07-27] MEDS: CLOPIDOGREL BISULFATE 75 MG TAB PO SCH (08:31)
[2016-07-27] MEDS: POLYETHYLENE (MIRALAX) 17 GM PACK PO SCH (08:32)
[2016-07-27] MEDS: POTASSIUM CHLORIDE INJ 20 MEQ in SODIUM CHLORIDE 0.9% 1000ML 1,000 ML IV SCH (08:33)
[2016-07-27] MEDS: HEPARIN SOD 5000 UNIT/0.5 ML CARP SQ SCH ×2 (08:34→20:53)
[2016-07-27 09:01] LABS: BUN/CREATININE RATIO 17.4 (10-20); MAGNESIUM 2.1 mg/dl (1.8-2.4)
[2016-07-27 09:19] LABS: CALCIUM 9.6 mg/dl (8.5-10.1)
--- NOTE | 2016-07-27 11:47 | EEG Procedure Note ---
EEG Procedure Note Date of Service July 27, 2016. Start / End Times Start Time: 8:04 AM End Time: 8:24 AM Referring Physician Jael Zamarripa History 89-year-old female with Change in mental status. EEG for further evaluation of possible seizure etiology Home Medication List Scheduled Atorvastatin (Lipitor), 10 MG PO DAILY Cholecalciferol (Vitamin D3), 1 TAB PO WK Clopidogrel Bisulfate (Plavix), 75 MG PO DAILY Cyanocobalamin (Vitamin B-12), 1,000 MCG PO DAILY Methylprednisolone (Medrol Dosepak), 0 PO DAILY Omeprazole (Prilosec), 20 MG PO DAILY Scheduled PRN Acetaminophen (Tylenol), 1 SUPP RE Q4H PRN for Pain or Fever Acetaminophen (Tylenol), 650 MG PO Q4H PRN for Pain or Fever Bisacodyl (Dulcolax), 1 SUPP IA Q2D PRN for Constipation Oxycodone Ir (Roxicodone Ir), 0.5-1 TAB PO Q4H PRN for Severe Pain Inpatient Medication List Current Inpatient Medications Medications (Trade) Dose Ordered Sig/Álvaro Route Start Time Stop Time Status Last Admin Dose Admin Ioversol (Optiray 320) 125 ml UD PRN IV 07/23/16 14:45 07/27/16 14:44 Diclofenac Sodium (Voltaren 1% Top Gel) 1 appln BID EXT 07/23/16 21:00 08/22/16 20:59 07/27/16 08:30 1 APPLN Miscellaneous (Iv Fluids Completed) 1 ea PRN PRN N/A 07/23/16 21:30 07/23/17 21:29 Heparin Sodium (Porcine) (Heparin Sq 5000 Unit/0.5ml) 5,000 unit Q12 SQ 07/24/16 09:00 08/23/16 08:59 07/27/16 08:34 5,000 UNIT Miscellaneous Information (Pharmacist Discharge Med Rec Consult) 1 ea UD PRN N/A 07/25/16 08:45 08/24/16 08:44 Senna 17.2 mg 17.2 mg BID PO 07/25/16 21:00 08/24/16 20:59 07/27/16 08:31 17.2 MG Pantoprazole Sodium/Syringe (Protonix Inj/ Syringe) 10 ml @ 5 mls/min DAILY@11 IV 07/26/16 11:00 08/25/16 10:59 07/26/16 11:00 5 MLS/MIN Ondansetron HCl 4 mg 4 mg Q6H PRN IV 07/25/16 23:15 08/24/16 23:14 Acetaminophen 100 ml @ 400 mls/hr Q8H PRN IV 07/25/16 23:15 08/24/16 23:14 Piperacillin Sod/ Tazobactam Sod/ Dextrose (Zosyn Iv/D5 100ml) 115 ml @ 28.75 mls/ hr Q8H IV 07/26/16 04:00 08/02/16 03:59 07/27/16 03:45 28.75 MLS/HR Piperacillin Sod/ Tazobactam Sod (Consult) 1 ea UD PRN N/A 07/25/16 23:30 08/24/16 23:29 Ipratropium [place] (Atrovent 0.02% 0.5MG/2.5ML Neb) 0.5 mg Q6R INH 07/26/16 03:00 08/25/16 02:59 07/27/16 07:45 0.5 MG Levalbuterol (Xopenex 1.25MG/ 0.5ML Neb) 1.25 mg Q6R INH 07/26/16 03:00 08/25/16 02:59 07/27/16 07:45 1.25 MG Ipratropium [place] (Atrovent 0.02% 0.5MG/2.5ML Neb) 0.5 mg Q2H PRN INH 07/25/16 23:30 08/24/16 23:29 Levalbuterol (Xopenex 1.25MG/ 0.5ML Neb) 1.25 mg Q2H PRN INH 07/25/16 23:30 08/24/16 23:29 Vancomycin HCl 1 ea 1 ea UD PRN N/A 07/25/16 23:30 08/24/16 23:29 Acetaminophen 650 mg/Empty Bag 65 ml @ 260 mls/hr Q6H PRN IV 07/25/16 23:30 08/24/16 23:29 Vancomycin HCl/ Sodium Chloride (Vancomycin Inj/ Nss 250ml) 263 ml @ 125 mls/hr Q24H IV 07/27/16 00:00 08/03/16 00:00 07/26/16 23:56 125 MLS/HR Aspirin (Ecotrin Tab) 81 mg QAM PO 07/26/16 13:30 08/25/16 13:29 07/27/16 08:30 81 MG Clopidogrel Bisulfate (plAVix TAB) 75 mg QAM PO 07/26/16 13:30 08/25/16 13:29 07/27/16 08:31 75 MG Ioversol (Optiray 320) 111 ml UD PRN IV 07/26/16 12:45 07/30/16 12:44 Atorvastatin Calcium (Lipitor Tab) 40 mg QAM PO 07/26/16 15:30 08/25/16 15:29 07/26/16 17:00 40 MG Polyethylene 17 gm 17 gm DAILY PO 07/27/16 09:00 08/26/16 08:59 07/27/16 08:32 17 GM Potassium Chloride/Sodium Chloride (KCl Inj/Nss 1000ml) 1,010 ml @ 100 mls/hr Q10H6M IV 07/26/16 23:00 08/25/16 22:59 07/27/16 08:33 100 MLS/HR Description This is a 21 electrode EEG with a single channel dedicated to limited EKG. The electrodes were placed in accordance with the International 10-20 system. Intermittent movement artifact noted At the start of the recording the patient was in an awake state. Background was well organized and composed of symmetric mixed alpha and beta frequencies and mild excess theta frequencies. There was a symmetric well-formed moderate amplitude 7-8 Hz posterior dominant rhythm that was reactive to eye opening and closure. Hyperventilation was not done. Intermittent photic stimulation at various frequencies produced no abnormalities. There was no state changes or sleep transients. Interpretation This is an abnormal routine EEG secondary to mild background slowing. There was no electrographic seizures or epileptiform discharges. Clinical Correlation This EEG indicates mild encephalopathy of nonspecific etiology.
[2016-07-27] MEDS ORDERED: POTASSIUM CHLORIDE 10 MEQ TABCR PO STA (12:03)
[2016-07-27] MEDS: PANTOprazole INJ 40 MG in SYRINGE 0 ML IV SCH (13:23)
[2016-07-27] MEDS: ATORVASTATIN 40 MG TAB PO SCH (16:37)
[2016-07-27] MEDS ORDERED: RISPERIDONE ODT 0.5MG PO PRN (20:15)
--- NOTE | 2016-07-27 23:12 | Hospitalist Progress Note ---
Hospitalist Progress Note Date of Service July 27, 2016. Subjective Pt evaluation today including: conversation w/ patient, conversation w/ family , conversation w/ apartment leasing consultant (Neurology) pt confused, hypoxic at times but RN thinks false readings on POx as is on her forehead and she is moving around a lot, restless Additional Comments: difficult to obtain due to confusion Objective Vital Signs Date Time Temp Pulse Resp B/P Pulse Ox O2 Delivery O2 Flow Rate FiO2 07/27/16 20:29 36.6 90 22 134/83 97 Nasal Cannula 2.0 07/27/16 20:00 Nasal Cannula 4.0 07/27/16 19:25 82 20 93 Venturi Mask 35 07/27/16 16:15 Mask 5.0 07/27/16 15:53 36.6 97 19 134/93 90 Venturi Mask 15.0 07/27/16 12:30 Mask 5.0 07/27/16 11:47 103 24 103/88 80 Mask 15.0 07/27/16 08:30 Mask 5.0 07/27/16 07:46 77 20 84 Nasal Cannula 5.0 07/27/16 07:01 36.5 88 14 150/100 87 Nasal Cannula 5.0 07/27/16 04:00 Nasal Cannula 4.0 07/27/16 02:37 36.6 96 24 144/83 95 Nasal Cannula 4.0 07/27/16 01:37 87 20 93 Nasal Cannula 4.0 07/27/16 00:40 114 22 92 Nasal Cannula 4.0 07/27/16 00:02 BiPAP 07/26/16 23:09 36.3 104 20 129/87 98 BiPAP 5.0 Physical Exam General Appearance: no apparent distress, + thin Eyes: normal inspection, sclerae normal Neck: trachea midline Respiratory/Chest: lungs clear, normal breath sounds (wearing facemask), no respiratory distress, no accessory muscle use Cardiovascular: regular rate, rhythm, no edema, no gallop, no murmur Abdomen: normal bowel sounds, non tender, soft, no organomegaly, no pulsatile mass Extremities: non-tender, no pedal edema, no calf tenderness Neurologic/Psychiatric: alert, + disoriented, + pertinent finding (does not follow commands, moving all extremities, keeps arms in flexed position) Skin: normal color, no rash Laboratory Results Last 24 Hours Test 07/27/16 08:04 White Blood Count 7.20 K/uL Red Blood Count 4.81 M/uL Hemoglobin 14.8 g/dL Hematocrit 43.3 % Mean Corpuscular Volume 90.0 fL Mean Corpuscular Hemoglobin 30.8 pg Mean Corpuscular Hemoglobin Concent 34.2 g/dl Platelet Count 222 K/uL Mean Platelet Volume 11.4 fL Neutrophils (%) (Auto) 76.0 % Lymphocytes (%) (Auto) 17.1 % Monocytes (%) (Auto) 5.8 % Eosinophils (%) (Auto) 0.4 % Basophils (%) (Auto) 0.6 % Neutrophils # (Auto) 5.47 K/uL Lymphocytes # (Auto) 1.23 K/uL Monocytes # (Auto) 0.42 K/uL Eosinophils # (Auto) 0.03 K/uL Basophils # (Auto) 0.04 K/uL RDW Standard Deviation 44.9 fL RDW Coefficient of Variation 13.6 % Immature Granulocyte % (Auto) 0.1 % Immature Granulocyte # (Auto) 0.01 K/uL Sodium Level 140 mmol/L Potassium Level 3.0 mmol/L Chloride Level 105 mmol/L Carbon Dioxide Level 23 mmol/L Anion Gap 12.0 mmol/L Blood Urea Nitrogen 17 mg/dl Creatinine 1.00 mg/dl Est Creatinine Clear Calc Drug Dose 20.4 ml/min Estimated GFR () 57.8 Estimated GFR (Non- 49.9 BUN/Creatinine Ratio 17.4 Random Glucose 112 mg/dl Calcium Level 9.6 mg/dl Magnesium Level 2.1 mg/dl Assessment and Plan 89 year old female admission for altered mental status, left sided headache, 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 Acute hypoxic respiratory failure, required BiPAP intermittently, now improved, CXR remains without infiltrate, Speech Tx evaluated and made recommendations. Speech Recs: 1. Puree diet with thin liquids. NO STRAWS. 2. Attempt PO only when pt is fully awake, alert, and able to accept PO from spoon. 3. Aspiration precautions: awake and alert, fully upright, small bites and sips. 4. Oral care 5. Discontinue PO if signs or symptoms aspiration. 6. Speech Therapy will follow up for diet tolerance. -can dc Vanco and Zosyn as no evidence of aspiration PNA -continue to wean down supplemental oxygen -continue bronchodilators Encephalopathy acute delirium, Acute CVA-->MRI confirms 1 cm acute left parietal stroke. Carotid US and CTA neck without stenosis. CTA head with mild truncation of the peripheral vasculature of the left middle cerebral arterial distribution of indeterminate age. ECHO without evidence of thrombus. No A-fib on telemetry Negative urine culture and cxr. EEG with mild encephalopathy, but no seizure activity -continue asa, plavix and statin -f/u with Neuro in 1 month -PT/OT/ST and needs SNF placement -Risperdal prn agitation as per Neuro recommendations Constipation -senna and miralax Thoracic aortic aneurysm seen 4 cm, will need follow up routinely Headache normal ESR and CRP likely secondary to CVA Urinary retention on CT and exam - due to constipation, negative ua, voiding more easily now VTE Prophylaxis- heparin 5000 units SQ Q12H Dispo-to SNF possibly tomorrow
[2016-07-28] VITALS (12 sets, daily range): BP systolic 137–162; BP diastolic 87–100; PULSE 85–116; TEMP 36.5–36.9; O2SAT 86–100
[2016-07-28] MEDS: IPRATROPIUM BROMIDE NEB SOLN 0.02% 2.5 ML VIAL INH SCH ×4 (01:55→18:59)
[2016-07-28] MEDS: LEVALBUTEROL 1.25MG/0.5ML NEB INH SCH ×4 (01:55→18:59)
[2016-07-28 06:19] LABS: HEMATOCRIT 43.6 % (37-47); MEAN CELL VOLUME 90.1 fL (80-100); MEAN CORPUSCULAR HGB CONC 33.3 g/dl (32-36); MEAN PLATELET VOLUME 11.5 fL (7.4-10.4); PLATELET COUNT 223 K/uL (130-400); RED BLOOD COUNT 4.84 M/uL (4.2-5.4); WHITE BLOOD COUNT 7.08 K/uL (4.8-10.8)
[2016-07-28 07:00] LABS: CREATININE 1.1 mg/dl (0.60-1.20); POTASSIUM 4.2 mmol/L (3.5-5.1)
[2016-07-28] MEDS: DICLOFENAC SOD 1% GEL 100 GM TUBE EXT SCH ×2 (08:28→22:00)
[2016-07-28] MEDS: CLOPIDOGREL BISULFATE 75 MG TAB PO SCH (08:28)
[2016-07-28] MEDS: ASPIRIN 81 MG ECTAB PO SCH (08:28)
[2016-07-28] MEDS: ATORVASTATIN 40 MG TAB PO SCH (08:28)
[2016-07-28] MEDS: POLYETHYLENE (MIRALAX) 17 GM PACK PO SCH (08:29)
[2016-07-28] MEDS: PANTOprazole SOD 40 MG TAB PO SCH (08:29)
[2016-07-28] MEDS: SENNA 8.6 MG TAB PO SCH ×2 (08:29→22:00)
[2016-07-28] MEDS: HEPARIN SOD 5000 UNIT/0.5 ML CARP SQ SCH ×2 (08:36→22:01)
[2016-07-28] MEDS ORDERED: RISPERIDONE ODT 0.5MG PO ONE (10:41)
[2016-07-28] MEDS ORDERED: BISACODYL 10 MG SUPP PR STA (10:43)
[2016-07-28] MEDS ORDERED: BISACODYL 10 MG SUPP ONE (13:59)
--- NOTE | 2016-07-28 16:09 | Palliative Care Progress Note ---
Palliative Care Progress Note Date of Service July 28, 2016. Subjective Meeting with son, Behzad Corea (Bill), at 1100 to discuss goals of care and fill out POLST form.
[2016-07-28] MEDS ORDERED: RISPERIDONE ODT 0.5MG PO PRN (21:00)
[2016-07-28] MEDS: RISPERIDONE ODT 0.5MG PO PRN (22:00)
--- NOTE | 2016-07-28 23:24 | Hospitalist Progress Note ---
Hospitalist Progress Note Date of Service July 28, 2016. Subjective Pt evaluation today including: conversation w/ patient, conversation w/ family Patient seems to be calm her today with the addition of Risperdal as per nursing. Her oxygen saturations are a little bit better. Had a few minutes of sinus tachycardia versus SVT in the 140s overnight but otherwise no events on telemetry. Additional Comments: Difficult to obtain due to patient's confusion. Objective Vital Signs Date Time Temp Pulse Resp B/P Pulse Ox O2 Delivery O2 Flow Rate FiO2 07/28/16 22:47 36.9 97 20 149/99 98 07/28/16 22:00 108 98 8.0 07/28/16 19:11 85 93 8.0 07/28/16 19:00 107 20 86 Room Air 6.0 07/28/16 18:58 36.7 116 22 137/87 90 Nasal Cannula 6.0 07/28/16 16:00 Mask 6.0 07/28/16 15:14 36.7 115 17 143/97 91 Nasal Cannula 6.0 07/28/16 14:48 99 20 93 Room Air 6.0 07/28/16 12:30 Mask 6.0 07/28/16 11:00 36.5 99 19 157/97 93 Nasal Cannula 6.0 07/28/16 08:00 Mask 6.0 07/28/16 07:30 93 20 96 Venturi Mask 35 07/28/16 07:16 36.8 20 162/99 94 07/28/16 04:02 Mask 6.0 07/28/16 04:00 36.8 98 18 96 Non-Rebreather 8.0 07/28/16 04:00 155/100 07/28/16 01:55 89 20 100 Venturi Mask 35 07/28/16 00:00 Mask 6.0 Physical Exam General Appearance: no apparent distress, + thin Eyes: normal inspection, sclerae normal Neck: trachea midline Respiratory/Chest: no respiratory distress, no accessory muscle use, + pertinent finding (a few crackles at the bases and rhonchi) Cardiovascular: regular rate, rhythm, no edema, no murmur Abdomen: normal bowel sounds, non tender, soft Extremities: no pedal edema, no calf tenderness Neurologic/Psychiatric: alert, + disoriented, + pertinent finding (moving all extremities well, no facial droop, does not follow commands) Skin: normal color, warm/dry, no rash Laboratory Results Last 24 Hours Test 07/28/16 06:09 White Blood Count 7.08 K/uL Red Blood Count 4.84 M/uL Hemoglobin 14.5 g/dL Hematocrit 43.6 % Mean Corpuscular Volume 90.1 fL Mean Corpuscular Hemoglobin 30.0 pg Mean Corpuscular Hemoglobin Concent 33.3 g/dl RDW Standard Deviation 45.6 fL RDW Coefficient of Variation 13.9 % Platelet Count 223 K/uL Mean Platelet Volume 11.5 fL Sodium Level 144 mmol/L Potassium Level 4.2 mmol/L Chloride Level 111 mmol/L Carbon Dioxide Level 24 mmol/L Anion Gap 9.0 mmol/L Blood Urea Nitrogen 26 mg/dl Creatinine 1.10 mg/dl Est Creatinine Clear Calc Drug Dose 18.5 ml/min Estimated GFR () 51.5 Estimated GFR (Non- 44.5 BUN/Creatinine Ratio 24.0 Random Glucose 116 mg/dl Calcium Level 10.0 mg/dl Assessment and Plan 89 year old female admission for altered mental status, left sided headache, 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 Continues to have confusion likely secondary to her acute CVA. Acute hypoxic respiratory failure, required BiPAP intermittently, now improved somewhat, CXR remains without infiltrate, Speech Tx evaluated and made recommendations. Speech Recs: 1. Puree diet with thin liquids. NO STRAWS. 2. Attempt PO only when pt is fully awake, alert, and able to accept PO from spoon. 3. Aspiration precautions: awake and alert, fully upright, small bites and sips. 4. Oral care 5. Discontinue PO if signs or symptoms aspiration. 6. Speech Therapy will follow up for diet tolerance. -Received 2 days of Vanco and Zosyn but then discontinued as no evidence of aspiration PNA -continue to wean down supplemental oxygen as able to -continue bronchodilators Encephalopathy acute delirium, Acute CVA-->MRI confirms 1 cm acute left parietal stroke. Carotid US and CTA neck without stenosis. CTA head with mild truncation of the peripheral vasculature of the left middle cerebral arterial distribution of indeterminate age. ECHO without evidence of thrombus. No A-fib on telemetry Negative urine culture and cxr. EEG with mild encephalopathy, but no seizure activity Continues to require 1:1 sitter due to confusion and agitation. Risperdal is helping somewhat. -continue asa, plavix and statin -f/u with Neuro in 1 month -PT/OT/ST and needs SNF placement and plans to meet with palliative care nurse practitioner tomorrow with family to discuss comfort measures and possible hospice care after discharge -Risperdal prn agitation as per Neuro recommendations Constipation -senna and miralax, add bisacodyl suppository today Thoracic aortic aneurysm seen 4 cm, will need follow up routinely Headache-seems to have resolved. She has a normal ESR and CRP likely secondary to CVA Urinary retention on CT and exam - due to constipation, negative ua, voiding more easily now -Bladder scan every shift as needed VTE Prophylaxis- heparin 5000 units SQ Q12H Dispo-to SNF possibly in 1-2 days if can be weaned to nasal cannula and no longer be requiring a one-to-one
[2016-07-28] MEDS ORDERED: VANCOMYCIN TROUGH SCH (23:30)
[2016-07-29] VITALS (16 sets, daily range): BP systolic 128–166; BP diastolic 83–98; PULSE 75–117; TEMP 36.4–36.9; O2SAT 91–100
[2016-07-29] MEDS: IPRATROPIUM BROMIDE NEB SOLN 0.02% 2.5 ML VIAL INH SCH ×4 (02:12→19:11)
[2016-07-29] MEDS: LEVALBUTEROL 1.25MG/0.5ML NEB INH SCH ×4 (02:12→19:11)
[2016-07-29] MEDS: DICLOFENAC SOD 1% GEL 100 GM TUBE EXT SCH ×2 (10:10→20:39)
[2016-07-29] MEDS: HEPARIN SOD 5000 UNIT/0.5 ML CARP SQ SCH ×2 (10:12→20:51)
--- NOTE | 2016-07-29 10:49 | Palliative Care Consultation ---
Consultation Date of Consultation: July 29, 2016. Requesting Physician: Dr. Bell Attending Physician: Dr. Bell Reason for Consultation: Goals of care History of Present Illness This 89 year old female patient presented to the ED with altered mental status, unresponsive episode, abdominal pain and headache. She apparently couldn't give history due to confusion. History obtained from family and record. 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 She underwent a CT head outpatient for these symptoms which showed old infarcts and advanced microvascular changes. She had a previous diagnosis of giant cell arteritis. She was recently treated for a UTI 07/06/16 and sinus infection in the last month. In the ED she had a CTA head- did not show anything to explain her headache and CT A/P showed bladder distension and severe constipation but otherwise no acute findings. Patient was eventually able to undergo MRI which showed new left parietal infarct and other old infarcts. Her overall condition has declined, son noted to Dr. Bell a significant change back in the fall which he suspected could have been a stroke at that time as well. Patient has been quite confused here, was started on Risperdal. Also with acute hypoxic respiratory failure, CXR without infiltrate or signs of aspiration pneumonia. Speech still evaluated patient and recommend pureed with thin liquids. With advanced age, new CVA, and worsening overal condition, palliative care consulted to establish goals of care. Met with the patient and son/POA, Tulio Corea, in room 207. Behzad confirms that the goal is strictly for comfort and understands all of his mom's illnesses. The patient is awake and alert, pleasantly confused. No longer a 1:1. She denies any pain or discomfort. Plan as of now is for patient to go to [facility], then transition to comfort/hospice. Behzad already met with Dr. Heredia and filled out a POLST form as follows: DNR/DNI, comfort measures only, use of abx with comfort as the goal, and no artificial hydration/nutrition. Past Medical/Surgical History Medical History: CVA Giant cell arteritis Confusion Social History Smoking Status: Never Smoker History of Alcohol Use: No Drug Use: none Marital Status: Occupation Status: retired Review of Systems Constitutional: + weakness Respiratory: No shortness of breath Abdomen: No nausea, No pain, No vomiting Female : No problem reported Psychiatric: No anxiety Allergies Coded Allergies: No Known Allergies (Unverified , 07/23/16) Medications Current Inpatient Medications Medications (Trade) Dose Ordered Sig/Álvaro Route Start Time Stop Time Status Last Admin Dose Admin Diclofenac Sodium (Voltaren 1% Top Gel) 1 appln BID EXT 07/23/16 21:00 08/22/16 20:59 07/29/16 10:10 1 APPLN Miscellaneous (Iv Fluids Completed) 1 ea PRN PRN N/A 07/23/16 21:30 07/23/17 21:29 Heparin Sodium (Porcine) (Heparin Sq 5000 Unit/0.5ml) 5,000 unit Q12 SQ 07/24/16 09:00 08/23/16 08:59 07/29/16 10:12 5,000 UNIT Miscellaneous Information (Pharmacist Discharge Med Rec Consult) 1 ea UD PRN N/A 07/25/16 08:45 08/24/16 08:44 Senna (Senokot Tab) 17.2 mg BID PO 07/25/16 21:00 08/24/16 20:59 07/28/16 22:00 17.2 MG Ondansetron HCl 4 mg 4 mg Q6H PRN IV 07/25/16 23:15 08/24/16 23:14 Acetaminophen (Ofirmev Iv) 100 ml @ 400 mls/hr Q8H PRN IV 07/25/16 23:15 08/24/16 23:14 Ipratropium [place] (Atrovent 0.02% 0.5MG/2.5ML Neb) 0.5 mg Q6R INH 07/26/16 03:00 08/25/16 02:59 07/29/16 06:54 0.5 MG Levalbuterol (Xopenex 1.25MG/ 0.5ML Neb) 1.25 mg Q6R INH 07/26/16 03:00 08/25/16 02:59 07/29/16 06:54 1.25 MG Ipratropium [place] (Atrovent 0.02% 0.5MG/2.5ML Neb) 0.5 mg Q2H PRN INH 07/25/16 23:30 08/24/16 23:29 Levalbuterol 1.25 mg 1.25 mg Q2H PRN INH 07/25/16 23:30 08/24/16 23:29 Acetaminophen/ Empty Bag (Ofirmev Iv/ Empty Iv Bag 100ml) 65 ml @ 260 mls/hr Q6H PRN IV 07/25/16 23:30 08/24/16 23:29 Aspirin (Ecotrin Tab) 81 mg QAM PO 07/26/16 13:30 08/25/16 13:29 07/28/16 08:28 81 MG Clopidogrel Bisulfate (plAVix TAB) 75 mg QAM PO 07/26/16 13:30 08/25/16 13:29 07/28/16 08:28 75 MG Ioversol (Optiray 320) 111 ml UD PRN IV 07/26/16 12:45 07/30/16 12:44 Atorvastatin Calcium (Lipitor Tab) 40 mg QAM PO 07/26/16 15:30 08/25/16 15:29 07/28/16 08:28 40 MG Polyethylene (Miralax Powder Packet) 17 gm DAILY PO 07/27/16 09:00 08/26/16 08:59 07/28/16 08:29 17 GM Pantoprazole Sodium (Protonix Tab) 40 mg QAM PO 07/28/16 09:00 08/27/16 08:59 07/28/16 08:29 40 MG Risperidone (Risperdal M Tab) 0.5 mg BID PRN PO 07/28/16 21:00 08/27/16 20:59 07/28/16 22:00 0.5 MG Physical Exam Date Time Temp Pulse Resp B/P Pulse Ox O2 Delivery O2 Flow Rate FiO2 07/29/16 09:26 91 18 132/93 99 Nasal Cannula 4.0 07/29/16 08:01 36.4 88 16 150/86 100 BiPAP CPAP 07/29/16 08:00 BiPAP 35 07/29/16 06:54 80 97 3.0 07/29/16 06:54 80 20 97 BiPAP/CPAP 3.0 07/29/16 05:04 75 98 4.0 07/29/16 05:01 36.6 99 17 166/98 98 BiPAP 07/29/16 04:00 BiPAP 07/29/16 02:13 97 98 5.0 07/29/16 02:12 97 20 98 BiPAP/CPAP 5.0 07/29/16 00:02 BiPAP 07/28/16 22:47 36.9 97 20 149/99 98 07/28/16 22:00 108 98 8.0 07/28/16 20:00 BiPAP 07/28/16 19:11 85 93 8.0 07/28/16 19:00 107 20 86 Room Air 6.0 07/28/16 18:58 36.7 116 22 137/87 90 Nasal Cannula 6.0 07/28/16 16:00 Mask 6.0 07/28/16 15:14 36.7 115 17 143/97 91 Nasal Cannula 6.0 07/28/16 14:48 99 20 93 Room Air 6.0 07/28/16 12:30 Mask 6.0 07/28/16 11:00 36.5 99 19 157/97 93 Nasal Cannula 6.0 General Appearance: no apparent distress, + cachetic, + thin ENT: hearing grossly normal Neck: supple, no JVD Respiratory: no respiratory distress, no accessory muscle use, + rhonchi (few scattered), + pertinent finding (currently on nasal cannula) Cardiovascular: no edema, + tachycardia, + normal peripheral pulses Abdomen: normal bowel sounds, non tender, soft Neurologic/Psychiatric: alert, + disoriented Laboratory Results Last 24 Hours Test 07/28/16 23:20 Vancomycin Level Trough 3.9 mcg/ml Assessment & Plan Palliative Performance Scale: 30 % Problem list: Altered mental status/delirium Weakness Acute CVA- left parietal. Also with history of previous CVA Constipation Bladder distention- now voiding. Probably 2/2 constipation Goals of care (Z51.5) Palliative care plan: -DNR/DNI per previous discussion -POLST was completed at [facility] by Dr. 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 -[facility], skilled initially, then transition to comfort only/hospice. -Goal is for comfort and patient's son really does not want her to come back to hospital -Patient denies any pain -Would discontinue lipitor. Will defer to primary team on whether or not to continue Plavix -Would transfer out of telemetry Thank you kindly for this consult. I will follow as needed.
[2016-07-29] MEDS: CLOPIDOGREL BISULFATE 75 MG TAB PO SCH (12:49)
[2016-07-29] MEDS: POLYETHYLENE (MIRALAX) 17 GM PACK PO SCH (12:49)
[2016-07-29] MEDS: ATORVASTATIN 40 MG TAB PO SCH (12:49)
[2016-07-29] MEDS: PANTOprazole SOD 40 MG TAB PO SCH (12:49)
[2016-07-29] MEDS: ASPIRIN 81 MG ECTAB PO SCH (12:49)
[2016-07-29] MEDS: SENNA 8.6 MG TAB PO SCH ×2 (12:50→20:39)
[2016-07-29] MEDS ORDERED: BISACODYL 10 MG SUPP PR PRN (22:15)
--- NOTE | 2016-07-29 22:15 | Hospitalist Progress Note ---
Hospitalist Progress Note Date of Service July 29, 2016. Subjective Pt evaluation today including: conversation w/ patient (and with nursing staff) Patient much more calm today, less agitated. Is carrying on a conversation with me but is completely confused . No events on telemetry Abdomen: + pain (is able to tell me that she has pain in her lower abdomen) All Other Systems: Reviewed and Negative Objective Vital Signs Date Time Temp Pulse Resp B/P Pulse Ox O2 Delivery O2 Flow Rate FiO2 07/29/16 20:15 93 Nasal Cannula 4.0 35 07/29/16 20:07 36.8 113 20 128/83 93 Nasal Cannula 3.0 07/29/16 19:46 36.5 104 18 97 4.0 07/29/16 19:16 109 18 93 Nasal Cannula 4.0 07/29/16 16:27 36.9 117 22 141/94 95 Nasal Cannula 3.0 07/29/16 16:00 Nasal Cannula 4.0 07/29/16 13:50 101 16 91 Nasal Cannula 3.0 07/29/16 12:00 97 Nasal Cannula 4.0 07/29/16 11:32 36.7 93 16 145/89 97 4.0 07/29/16 09:26 91 18 132/93 99 Nasal Cannula 4.0 07/29/16 08:01 36.4 88 16 150/86 100 BiPAP CPAP 07/29/16 08:00 BiPAP 35 07/29/16 06:54 80 97 3.0 07/29/16 06:54 80 20 97 BiPAP/CPAP 3.0 07/29/16 05:04 75 98 4.0 07/29/16 05:01 36.6 99 17 166/98 98 BiPAP 07/29/16 04:00 BiPAP 07/29/16 02:13 97 98 5.0 07/29/16 02:12 97 20 98 BiPAP/CPAP 5.0 07/29/16 00:02 BiPAP 07/28/16 22:47 36.9 97 20 149/99 98 Physical Exam General Appearance: no apparent distress, + thin Eyes: normal inspection, sclerae normal Neck: trachea midline Respiratory/Chest: lungs clear, normal breath sounds, no respiratory distress, no accessory muscle use Cardiovascular: regular rate, rhythm, no edema, no murmur Abdomen: normal bowel sounds, non tender, soft (but mildly distended) Extremities: normal range of motion, no pedal edema, no calf tenderness Neurologic/Psychiatric: alert, + disoriented Skin: normal color, warm/dry Laboratory Results Last 24 Hours Test 07/28/16 23:20 Vancomycin Level Trough 3.9 mcg/ml Assessment and Plan 89 year old female admission for altered mental status, left sided headache, 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 Continues to have confusion likely secondary to her acute CVA. Acute hypoxic respiratory failure, required BiPAP intermittently, now improved and is weaned to nasal cannula, CXR remains without infiltrate, Speech Tx evaluated and made recommendations. Speech Recs: 1. Puree diet with thin liquids. NO STRAWS. 2. Attempt PO only when pt is fully awake, alert, and able to accept PO from spoon. 3. Aspiration precautions: awake and alert, fully upright, small bites and sips. 4. Oral care 5. Discontinue PO if signs or symptoms aspiration. 6. Speech Therapy will follow up for diet tolerance. -Received 2 days of Vanco and Zosyn but then discontinued as no evidence of aspiration PNA -continue to wean down supplemental oxygen as able to -continue bronchodilators Encephalopathy acute delirium, Acute CVA-->MRI confirms 1 cm acute left parietal stroke. Carotid US and CTA neck without stenosis. CTA head with mild truncation of the peripheral vasculature of the left middle cerebral arterial distribution of indeterminate age. ECHO without evidence of thrombus. No A-fib on telemetry Negative urine culture and cxr. EEG with mild encephalopathy, but no seizure activity No longer requiring a 1:1 sitter due to confusion and agitation. Arelis is helping Family meeting along with palliative care today decided that she will move towards comfort measures after a brief period of attempt at rehabilitation. The family has signed a POLST form stating that she is comfort measures only, DO NOT RESUSCITATE/DO NOT INTUBATE -continue asa, plavix -We will discontinue statin given advanced age and moving toward hospice care -No need to follow up with neurology as an outpatient -PT/OT/ST and needs SNF placement probably tomorrow -Risperdal prn agitation as per Neuro recommendations -Okay to transfer to medical floor Constipation -senna and miralax, continue bisacodyl suppository when necessary Thoracic aortic aneurysm seen 4 cm, will need follow up routinely not likely need any follow-up unless family wishes to and if patient survives for longer than one year from now Headache-seems to have resolved. She has a normal ESR and CRP likely secondary to CVA Urinary retention on CT and exam - due to constipation, negative ua, placed Parham catheter -Keep Parham catheter for now and trial of voiding again at the [facility] VTE Prophylaxis- heparin 5000 units SQ Q12H Dispo-to [facility] possibly tomorrow
[2016-07-30] VITALS (7 sets, daily range): BP systolic 141–153; BP diastolic 93–98; PULSE 87–112; TEMP 36.5; O2SAT 86–100
[2016-07-30] MEDS: LEVALBUTEROL 1.25MG/0.5ML NEB INH SCH ×2 (02:00→07:14)
[2016-07-30] MEDS: IPRATROPIUM BROMIDE NEB SOLN 0.02% 2.5 ML VIAL INH SCH ×2 (02:00→07:14)
[2016-07-30] MEDS ORDERED: NURSING DECISION MEDICATION ORDER SCH (07:30)
[2016-07-30] MEDS ORDERED: ASPIRIN 81 MG CHEW PO SCH (08:00)
[2016-07-30] MEDS: POLYETHYLENE (MIRALAX) 17 GM PACK PO SCH (08:00)
[2016-07-30] MEDS: CLOPIDOGREL BISULFATE 75 MG TAB PO SCH (08:00)
[2016-07-30] MEDS: RISPERIDONE ODT 0.5MG PO PRN (08:00)
[2016-07-30] MEDS ORDERED: LANSOPRAZOLE SOLUTAB 30 MG PO SCH (08:00)
[2016-07-30] MEDS: DICLOFENAC SOD 1% GEL 100 GM TUBE EXT SCH (08:01)
[2016-07-30] MEDS: SENNA 8.6 MG TAB PO SCH (08:01)
[2016-07-30] MEDS: HEPARIN SOD 5000 UNIT/0.5 ML CARP SQ SCH (08:02)
[2016-07-30] MEDS ORDERED: XPNINS1255 INH (09:40)
[2016-07-30] MEDS ORDERED: ASPCH81 PO (09:40)
[2016-07-30] MEDS ORDERED: SNK PO (09:40)
[2016-07-30] MEDS ORDERED: RSPODT5 PO (09:40)
[2016-07-30] MEDS ORDERED: MRLP17 PO (09:40)
[2016-07-30] MEDS ORDERED: ATRINS INH (09:40)
--- NOTE | 2016-07-30 09:57 | Discharge Instructions ---
Discharge Instructions Date of Service July 30, 2016. Admission Reason for Admission: Headache, altered mental status Discharge Discharge Diagnosis / Problem: Acute CVA Discharge Goals Goal(s): Improve disease control, Diagnostic testing, Therapeutic intervention Activity Recommendations Activity Level: Assistance Required Therapies: Physical Therapy, Occupational Therapy, Speech Therapy Exercise/Sports Limitations: gradually increase as tolerated (as per PT/OT recommendations) Shower/Bathe: no limitations . 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 She developed hypoxia overnight - with concerns for aspiration vs false reading on POx due to agitation/restlessness. Continues to have confusion likely secondary to her acute CVA. Agitation has improved with the addition of Risperdal. Hypoxia improved and no evidence of aspiration PNA. Acute hypoxic respiratory failure, required BiPAP intermittently, now improved and is weaned to nasal cannula, CXR remains without infiltrate, afebrile. Speech Tx evaluated and made recommendations. Speech Recs: 1. Puree diet with thin liquids. NO STRAWS. 2. Attempt PO only when pt is fully awake, alert, and able to accept PO from spoon. 3. Aspiration precautions: awake and alert, fully upright, small bites and sips. 4. Oral care 5. Discontinue PO if signs or symptoms aspiration. 6. Speech Therapy will follow up for diet tolerance. 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 Carotid US and CTA neck without stenosis. CTA head with mild truncation of the peripheral vasculature of the left middle cerebral arterial distribution of indeterminate age. ECHO without evidence of thrombus. No A-fib on telemetry. Negative urine culture and cxr. EEG with mild encephalopathy, but no seizure activity No longer requiring a 1:1 sitter due to confusion and agitation. Risperdal is helping. Is a bit less confused on the day of discharge. Family met with palliative care and decided that she will move towards comfort measures an hospice after a period of attempt at rehabilitation. The family has signed a POLST form stating that she is comfort measures only, DO NOT RESUSCITATE/DO NOT INTUBATE -continue asa, plavix -We will discontinue statin given advanced age, LDL only 75, and moving toward hospice care -No need to follow up with neurology as an outpatient -PT/OT/ST and needs SNF placement -Risperdal prn agitation as per Neuro recommendations -Blood pressure recommendations for the first month post hospital discharge 150/ 90-130/80, and after that blood pressure recommendations 130/80-110/70 -could do terminal system operator cardiac monitoring if family wished to pursue occult A-fib and anticoagulation, but given desire for less testing and possible move towards Hospice care, will not arrange for this at this time -discharge to SNF today Constipation -senna and miralax, continue bisacodyl suppository when necessary Thoracic aortic aneurysm seen 4 cm, will need follow up routinely not likely need any follow-up unless family wishes to and if patient survives for longer than one year from now Headache-seems to have resolved. She has a normal ESR and CRP likely secondary to CVA Urinary retention on CT and exam - due to constipation, negative ua, placed Parham catheter -Keep Parham catheter for now and trial of voiding again at the SNF after constipation improved VTE Prophylaxis- heparin 5000 units SQ Q12H Dispo-to SNF today Activity Recommendations: See above Activation of Emergency Medical System: Call 911, immediately, if you experience any of the following: Warning Signs and Symptoms of Stroke: * Sudden numbness or weakness of the face, arm or leg, especially on one side of the body * Sudden confusion, trouble speaking or understanding * Sudden trouble seeing in one or both eyes * Sudden trouble walking, dizziness, loss of balance or coordination * Sudden severe headache with no cause Do not delay calling 911 if you experience any warning signs or symptoms of a stroke. Delay in seeking medical attention may affect what treatments can be given to you. Risk Factors for Stroke: You can reduce your chances of stroke by working with your medical provider to adopt a healthy lifestyle. Some specific ways to lower your chance of stroke are: * If you are a smoker, now is the time to stop smoking cigarettes * If you are diabetic, improve the control of your blood sugars * Avoid excessive amounts of alcohol * Control high blood pressure * Lose weight if you are overweight * Be sure to lead an active lifestyle * Eat a healthy diet low in salt, cholesterol and fat You should know about other risk factors for stroke that you are unable to control. These include: * Age 55 years or older * Male gender * Certain racial groups: , or / * Family History of Stroke, Mini stroke or Heart Attack * Sickle Cell Disease Follow Up: It is important for you to keep your follow up appointments with your medical provider. Current Hospital Diet Patient's current hospital diet: Regular Diet Discharge Diet Recommended Diet: Regular Diet Diet Texture: Pureed (blended smooth) (with thin liquids) Procedures Procedures Performed: MRI brain CTA Head CT Abd/pel Chest xrays Carotid artery US CTA Neck ECHO Pending Studies Studies pending at discharge: no Physician Orders On Transfer Special Precautions: Fall risk Aspiration precautions from Speech Therapy: 1. Puree diet with thin liquids. NO STRAWS. 2. Attempt PO only when pt is fully awake, alert, and able to accept PO from spoon. 3. Aspiration precautions: awake and alert, fully upright, small bites and sips. 4. Oral care 5. Discontinue PO if signs or symptoms aspiration. 6. Speech Therapy will follow up for diet tolerance. Dressing Changes: None IV Therapy: None Vital Signs: Routine Weigh: Routine POLST Discussion: with POLST completion Laboratory Results Hemoglobin A1c Test 07/26/16 06:43 Range/Units Estimated Average Glucose 114 mg/dl Hemoglobin A1c 5.6 4.5-5.6 % Lipid Panel Test 07/26/16 06:43 Range/Units Triglycerides Level 81 0-150 mg/dl Cholesterol Level 183 0-200 mg/dl HDL Cholesterol 92 mg/dl Cholesterol/HDL Ratio 2.0 LDL Cholesterol, Calculated 75 mg/dl Medical Emergencies . Who to Call and When: Medical Emergencies: If at any time you feel your situation is an emergency, please call 911 immediately. . Non-Emergent Contact Non-Emergency issues call your: Primary Care Provider . . "Provider Documentation" section prepared by Chelsey Bell. . Core Measure Problem Core Measures: Stroke Stroke Core Measures Reason no t-PA for Stroke: Treatment not indicated Reason no antithrom by day 2: Treatment provided - N/A Reason no antithrom at D/C: Treatment provided - N/A Reason no statin at D/C: Treatment not indicated (due to advanced age and low LDL) Reason no anticoag w/a fib: Treatment provided - N/A
--- NOTE | 2016-08-09 17:58 | Discharge Summary ---
Discharge Summary Date of Service July 30, 2016. 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 Mild truncation of the peripheral vasculature of the left middle cerebral arterial distribution of indeterminate age. Compromised exam due to considerable patient motion.. Considerable chronic small vessel change. No acute intracranial abnormality. No change from the prior study. Neck CTA: IMPRESSION: No significant stenosis, occlusion, or dissection identified within the carotid or vertebral arteries. CT Abd/pel: IMPRESSION: 1. Suboptimal examination without oral and IV contrast. The examination is also significantly degraded by motion artifact. 2. Moderate to severe constipation. No bowel obstruction is identified. 3. The bladder is distended. 4. There is mild bilateral hydroureteronephrosis, possibly related to the distended bladder. No renal calculus or obstructing lesion is clearly seen. 5. Cardiomegaly. 6. There is aneurysmal dilatation of the partially imaged ascending thoracic aorta which measures up to 4.1 cm. 7. Additional findings as above. CXR: IMPRESSION: Mild cardiomegaly. Otherwise negative study Brain MRI: FINDINGS: There is a 1 cm focus of restricted diffusion seen within the left posterior parietal lobe. This is consistent with a small acute infarct. There is motion artifact within the brain resulting in suboptimal evaluation. Extensive periventricular white matter T2 hyperintensity is nonspecific but favors advanced microvascular ischemic change. There is no mass, hematoma, or midline shift. The paranasal sinuses and left mastoid air cells are clear. There are few opacified right mastoid air cells. Multiple old infarcts seen within the cerebellar hemispheres and bilateral thalami. The major vascular flow voids at the skull base are maintained. Moderate atrophic changes within the brain. IMPRESSION: 1. A 1 cm acute infarct seen within the left posterior parietal lobe. 2. Atrophy and advanced microvascular ischemic changes are again noted. 3. Old infarcts as described above. Carotid US: No hemodynamically significant stenosis seen within the carotid arteries. Diffusely low velocity waveforms raise the possibility of hypotension. Clinical correlation recommended. ECHO: * 1. Normal LV size. Mild concentric LVH. Grade I diastolic dysfunction. * 2. Normal LV systolic function. LVEF 55-60%. No regional wall motion abnormalities. * 3. Normal RV size. Borderline RV dysfunction. * 4. Mild aortic regurgitation. Trace MR. * 5. Normal estimated RA and PA pressures. * 6. No prior studies for comparison. EEG: Description This is a 21 electrode EEG with a single channel dedicated to limited EKG. The electrodes were placed in accordance with the International 10-20 system. Intermittent movement artifact noted At the start of the recording the patient was in an awake state. Background was well organized and composed of symmetric mixed alpha and beta frequencies and mild excess theta frequencies. There was a symmetric well-formed moderate amplitude 7-8 Hz posterior dominant rhythm that was reactive to eye opening and closure. Hyperventilation was not done. Intermittent photic stimulation at various frequencies produced no abnormalities. There was no state changes or sleep transients. Interpretation This is an abnormal routine EEG secondary to mild background slowing. There was no electrographic seizures or epileptiform discharges. Clinical Correlation This EEG indicates mild encephalopathy of nonspecific etiology. Consultations: Neurology Palliative Care Medication Reconciliation New Medications: Aspirin (Aspirin Low Strength) 81 Mg Chew 81 MG PO QAM for 30 Days Ipratropium [place] (Ipratropium [place]) 0.5 Mg/2.5 Ml Nebu 0.5 MG INH Q6R for 30 Days Levalbuterol (Levalbuterol) 1.25 Mg/0.5 Ml Nebu 1.25 MG INH Q6R for 30 Days Polyethylene (Miralax) 17 Gm Pow 17 GM PO DAILY for 30 Days Risperidone (Risperidone M-Tab) 0.5 Mg Gemma 0.5 MG PO BID PRN for agitation for 30 Days Senna (Senna Lax) 8.6 Mg Tab 17.2 MG PO HS for 30 Days, TAB Continued Medications: Acetaminophen (Tylenol) 325 Mg Tab 650 MG PO Q4H PRN for Pain or Fever, TAB Bisacodyl (Dulcolax) 10 Mg Sup 1 SUPP HI Q2D PRN for Constipation, SUP Cholecalciferol (Vitamin D3) 1,000 Unit Tab 1 TAB PO WK, TAB WEDNESDAY Clopidogrel Bisulfate (Plavix) 75 Mg Tab 75 MG PO DAILY, TAB Cyanocobalamin (Vitamin B-12) 1,000 Mcg Tab 1000 MCG PO DAILY, TAB Omeprazole (Prilosec) 20 Mg Cap 20 MG PO DAILY, #30 CAP Discontinued Medications: Acetaminophen (Tylenol) 650 Mg Supp 1 SUPP RE Q4H PRN for Pain or Fever Atorvastatin (Lipitor) 10 Mg Tab 10 MG PO DAILY, TAB Methylprednisolone (Medrol Dosepak) 4 Mg Jj 0 PO DAILY, #1 PKT Oxycodone Ir (Roxicodone Ir) 5 Mg Tab 0.5-1 TAB PO Q4H PRN for Severe Pain, #20 TAB Discharge Exam Difficult to obtain ROS secondary to expressive aphasia Physical Exam General Appearance: no apparent distress, + thin Eyes: normal inspection, sclerae normal Neck: trachea midline Respiratory/Chest: lungs clear, normal breath sounds, no respiratory distress, no accessory muscle use Cardiovascular: regular rate, rhythm, no edema, no murmur Abdomen: normal bowel sounds, non tender, soft (but mildly distended) Extremities: normal range of motion, no pedal edema, no calf tenderness Neurologic/Psychiatric: alert, + disoriented Skin: normal color, warm/dry Review of Systems: Constitutional: No fever Hospital Course This pt is an 89 year old female admitted for altered mental status, left sided headache, 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 She developed hypoxia overnight - with concerns for aspiration vs false reading on POx due to agitation/restlessness. Continues to have confusion likely secondary to her acute CVA. Agitation has improved with the addition of Risperdal. Hypoxia improved and no evidence of aspiration PNA. Acute hypoxic respiratory failure, required BiPAP intermittently, now improved and is weaned to nasal cannula, CXR remains without infiltrate, afebrile. Speech Tx evaluated and made recommendations. Speech Recs: 1. Puree diet with thin liquids. NO STRAWS. 2. Attempt PO only when pt is fully awake, alert, and able to accept PO from spoon. 3. Aspiration precautions: awake and alert, fully upright, small bites and sips. 4. Oral care 5. Discontinue PO if signs or symptoms aspiration. 6. Speech Therapy will follow up for diet tolerance. 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 Carotid US and CTA neck without stenosis. CTA head with mild truncation of the peripheral vasculature of the left middle cerebral arterial distribution of indeterminate age. ECHO without evidence of thrombus. No A-fib on telemetry. Negative urine culture and cxr. EEG with mild encephalopathy, but no seizure activity No longer requiring a 1:1 sitter due to confusion and agitation. Risperdal is helping. Is a bit less confused on the day of discharge. Family met with palliative care and decided that she will move towards comfort measures an hospice after a period of attempt at rehabilitation. The family has signed a POLST form stating that she is comfort measures only, DO NOT RESUSCITATE/DO NOT INTUBATE -continue asa, plavix -We will discontinue statin given advanced age, LDL only 75, and moving toward hospice care -No need to follow up with neurology as an outpatient -PT/OT/ST and needs SNF placement -Risperdal prn agitation as per Neuro recommendations -Blood pressure recommendations for the first month post hospital discharge 150/ 90-130/80, and after that blood pressure recommendations 130/80-110/70 -could do alf cardiac monitoring if family wished to pursue occult A-fib and anticoagulation, but given desire for less testing and possible move towards Hospice care, will not arrange for this at this time -discharge to SNF today Constipation -senna and miralax, continue bisacodyl suppository when necessary Thoracic aortic aneurysm seen 4 cm, will need follow up routinely not likely need any follow-up unless family wishes to and if patient survives for longer than one year from now Headache-seems to have resolved. She has a normal ESR and CRP likely secondary to CVA Urinary retention on CT and exam - due to constipation, negative ua, placed Parham catheter -Keep Parham catheter for now and trial of voiding again at the SNF after constipation improved VTE Prophylaxis- heparin 5000 units SQ Q12H Dispo-to SNF today Total Time Spent: Greater than 30 minutes This includes examination of the patient, discharge planning, medication reconciliation, and communication with other providers. Discharge Instructions Please refer to the electronic Patient Visit Report (Discharge Instructions) for additional information. Follow-Up PCP within 1 week Additional Copies To Dennis Heredia M.D.
== END 2016-07-30 14:30 | DRG 64 ==
LOC: ENRESERVDT → ENRESERVTM → EDBD 13:48 → C.EDB 13:49 → C.MS2W 21:04 → EDBEDREQ 21:39 → C.MS2W 22:28 → OBSVTOIN 07-25 23:28 → C.2E 07-26 00:33 → OBSVTOIN 07-26 18:26 → INTOOBSV 07-26 18:26 → EDBEDREQ 07-29 19:19 → C.4E 07-29 19:57
PROVIDERS: ADMIT Hospitalist; ATTEND Family Medicine
DX: I63.9 Cerebral infarction, unspecified (principal); G93.49 Other encephalopathy; J96.01 Acute respiratory failure with hypoxia; I69.354 Hemiplegia and hemiparesis following cerebral infarction affecting left non-dominant side; I50.32 Chronic diastolic (congestive) heart failure; R29.708 NIHSS score 8; K59.00 Constipation, unspecified; R33.8 Other retention of urine; R09.02 Hypoxemia; F01.50 Vascular dementia, unspecified severity, without behavioral disturbance, psychotic disturbance, mood disturbance, and anxiety; I71.2 Thoracic aortic aneurysm, without rupture; I10 Essential (primary) hypertension; H91.90 Unspecified hearing loss, unspecified ear; Z51.81 Encounter for therapeutic drug level monitoring; Z79.899 Other long term (current) drug therapy; Z79.02 Long term (current) use of antithrombotics/antiplatelets; Z66 Do not resuscitate; Z87.39 Personal history of other diseases of the musculoskeletal system and connective tissue; Z87.440 Personal history of urinary (tract) infections

== ENCOUNTER → 2016-09-17 | Outpatient (CLI) | payer OTHER ==
[~2016-09-17] MED LIST changes: -ACET650S10 RE; -ATOR10TA82 PO; -METH4PAK PO; -OPTIRAY 320 IV PRN; -OXYC1TAB3 PO
[2016-09-17 09:55] LABS: BLOOD UREA NITROGEN 18 mg/dl (7-18); BUN/CREATININE RATIO 19.3 (10-20); CALCIUM 9.4 mg/dl (8.5-10.1); CARBON DIOXIDE 25 mmol/L (21-32); CHLORIDE 109 mmol/L (98-107); CREATININE 0.92 mg/dl (0.60-1.20); GLUCOSE 86 mg/dl (70-99); POTASSIUM 3.9 mmol/L (3.5-5.1); SODIUM 141 mmol/L (136-145)
== END ==
LOC: C.LABFOXAN 09:05
PROVIDERS: ATTEND Nurse Practitioner Family
DX: R53.1 Weakness (principal)

== ENCOUNTER → 2016-09-17 | Outpatient (CLI) | payer OTHER ==
--- NOTE | 2016-09-17 14:34 | DIAGNOSTIC IMAGING REPORT ---
MODIFIED BARIUM SWALLOW CLINICAL HISTORY: Cough. Evaluate swallowing function. COMPARISON STUDY: No previous studies for comparison. Fluoroscopy time: 2.4 minutes. FINDINGS: There was minimal aspiration with serial swallows of thin liquids. There is no aspiration with nectar thick liquids, pudding or crackers with paste. There was moderate esophageal dysmotility. There was persistent prominence of the cricopharyngeus which results in at least moderate narrowing at the upper esophageal sphincter. IMPRESSION: 1. Small amount of tracheal aspiration with serial swallows of thin liquids. No aspiration with the remainder of the consistencies. 2. Moderate esophageal dysmotility. 3. Persistent prominence of the cricopharyngeus which results in at least moderate narrowing of the upper esophageal sphincter. This may reflect cricopharyngeal dysfunction. Electronically signed by: Nolan Hamilton M.D. 09/17/2016 2:32 PM Dictated Date/Time: 09/17/2016 2:27 PM
--- NOTE | 2016-09-17 15:06 | SWALLOWING EVALUATION ---
HISTORY: This 89 year-old woman, from [facility], who was referred for a VFSS at [facility] by LAMINATE FLOOR INSTALLER Valery who reports that pt. is currently on puree and nectart with suspect of aspiration on all. She has a PMH significant for delirium, hypoxia, aspiration pneumonia, CVA, HTN, and confusion. PROCEDURE: The patient was seen in the Radiology Department of [facility] for the VFSS. Cursory examination of the oral cavity revealed upper dentures and adequate lower dentition. Movement of the articulators was WNL. The patient was seated in a wheel chair and was viewed in both the Anterior-Posterior (A-P) and Lateral planes. Volitional phonation exercises completed in the A-P plane revealed bilateral vocal fold movement however closure was not complete from top to bottom, vocal intensity was within functional limits. In the lateral plane, the patient was given the following barium-infused boluses: 1 tsp thin barium with oral hold 1x, self presented single cup swallow-thin barium 1x, self presented serial cup swallow 1x. 1 tsp nectar thick barium with oral hold 1x, self presented single cup swallow- nectar thick barium 1x, self presented serial cup swallows 1x. 1 tsp barium pudding-self presented 2x. 1/2 Cracker with barium paste. In the A-P view, pt was given 1 tsp nectar thick barium and 1 tsp barium pudding with esophageal scan. RESULTS: Oral Phase:Pt. had adequate lip closure and no labial escape of any food or liquid items presented. Pt. had adequate tongue control however decreased oral bolus hold. Pt. demonstrating a cohesive bolus between tongue and palatal seal. Bolus preparation and mastication was WFL as timely and efficient chewing and mashing was observed with all consistencies. Bolus transport was rapid and lingual motion were functional as pt. demonstrated brisk tongue motion and no oral residue resulting in complete oral clearance. Initiation of pharyngeal swallow began with bolus head in valleculae. * Overall WFL for oral phase of swallow. Pharyngeal Phase:Soft Palate Elevation was complete for all boluses and no bolus was between the soft palate and the pharyngeal wall. Laryngeal elevation was slightly reduced partial superior movement of the thyroid cartilage with complete approximation of arytenoids to epiglottic base. Anterior Hyoid excursion was observed with partial anterior movement as well as complete epiglottic inversion. Laryngeal Vestibular closure was complete and no air or barium was noted in laryngeal vestibule. Pharyngeal stripping wave was present and complete. Pharyngeal contraction reduced for all tested items. Pharyngoesophageal segment opening was also WFL showing complete distension and complete duration with no obstruction of flow. Tongue base retraction was noted with all consistencies and tongue base made effective contact with posterior pharyngeal wall throughout study. There was increased Pharyngeal residue with increased viscosity items. *Overall MILD pharyngeal dysphagia. Pt. did NOT aspirate single swallows of thin liquids Pt. DID APSIRATE large sequential swallows of thins *No other penetration or aspiration was noted throughout the study. Esophageal Phase:Opening and closing of the UES was timely and efficient. Noted significant esophageal dysmotility on esophageal scan. SUMMARY/RECOMMENDATIONS: Overall pt. presents with NO oral dysphagia and MILD pharyngeal dysphagia with SIGNIFICANT esophageal dysmotility. Aspiration on SEQUENTIAL swallows of thins only NO penetration or aspiration on single swallows of thins or any other items tested throughout this study. Recommendin. "SLIPPERY" mechanical soft diet with thin liquids - NO STRAWS 2. LAMIN[employer] FLOOR INSTALLER -Dysphagia therapy at [facility] to address safe swallow strategies and aspiration precautions including: single sips, small bites, slow rate, NO straws, as well as to monitor progression of dementia and Parkinson's. 3. Full aspiration precautions 4. Consideration for GI consult to address esophageal dysmotility. All results and recommendations were discussed with the pt. however understanding is questionable. Report sent to [facility]. Thank you for referral of this patient. Please contact me at if any additional information is needed.
--- NOTE | 2016-09-21 14:40 | CODING QUERY NO DIAGNOSIS ---
TREATMENT RENDERED WITHOUT A DIAGNOSIS To promote full compliance with coding requirements relating to patient care, physician participation is requested in all cases of information coder uncertainty. Please assist us with providing a diagnosis/symptom for the test(s) below: A diagnosis/symptom was not documented on your Order. A valid diagnosis/symptom is required to bill all insurances. Please remember that we are unable to code a diagnosis of rule out, probable, possible, questionable, or suspected. Tests that require a diagnosis: * VIDEO SWALLOW DIAGNOSIS: Provider Signature: Date: Thank you Kaitlin Cardona [employer] Once completed, please kindly fax back to [phone] For questions please call [phone]
--- NOTE | 2016-10-15 06:18 | CODING QUERY MEDICAL NECESSITY ---
SUPPORTING DIAGNOSIS NEEDED A supporting diagnosis is required for the test/procedure performed on this patient in order for us to be reimbursed by the patient's insurance. Please provide a supporting diagnosis for the following test/procedure listed below next to the test name along with your signature. *If there is no additional diagnosis for this patient that would support the following test/procedure please document that below next to the test/procedure. Test(s)/Procedure(s) that require a supporting diagnosis: * VIDEO SWALLOW DIAGNOSIS: Provider Signature: Date: Thank you Kaitlin Vicco [employer] Information [employer] Once completed, please kindly fax back to [phone] For questions please call [phone]
== END ==
LOC: C.RAD 12:26
PROVIDERS: ATTEND Nurse Practitioner Family
DX: R47.02 Dysphasia (principal); K22.4 Dyskinesia of esophagus; R53.1 Weakness

== ENCOUNTER → 2016-09-25 | Outpatient (CLI) | payer OTHER ==
[2016-09-25 14:54] LABS: BASO % 0.7 %; BASO ABS # 0.04 K/uL (0-0.2); COMPLETE YES; EOS % 1.5 %; IG% 0.2 %; LYMPH % 27.4 %; LYMPH ABS # 1.61 K/uL (1.2-3.4); MEAN CELL VOLUME 90.3 fL (80-100); MEAN CORPUSCULAR HEMOGLOBIN 30.2 pg (25-34); MEAN CORPUSCULAR HGB CONC 33.4 g/dl (32-36); MONO % 6.6 %; NEUT % 63.6 %; PLATELET COUNT 232 K/uL (130-400); RED BLOOD COUNT 4.87 M/uL (4.2-5.4); WHITE BLOOD COUNT 5.88 K/uL (4.8-10.8)
[2016-09-25 15:06] LABS: BLOOD UREA NITROGEN 22 mg/dl (7-18); CALCIUM 9.7 mg/dl (8.5-10.1); CARBON DIOXIDE 26 mmol/L (21-32); CHLORIDE 105 mmol/L (98-107); GLUCOSE 109 mg/dl (70-99); POTASSIUM 4.1 mmol/L (3.5-5.1); SODIUM 138 mmol/L (136-145)
== END | disposition home or self-care (01) ==
LOC: C.LABFOXAN 13:40
PROVIDERS: ATTEND Nurse Practitioner Family
DX: R41.82 Altered mental status, unspecified (principal)

== ENCOUNTER → 2016-11-08 | Outpatient (CLI) | payer OTHER ==
[2016-11-08 13:41] LABS: URINE APPEARANCE CLOUDY (CLEAR); URINE BILIRUBIN NEG (NEG); URINE COLOR YELLOW; URINE EPITHELIAL CELL AUTO >30 /lpf (0-5); URINE NITRITE NEG (NEG); URINE SPECIFIC GRAVITY 1.019 (1.000-1.030); UROBILINOGEN NEG (NEG)
[2016-11-08 13:49] LABS: MANUAL MICROSCOPIC REQUIRED? NO; REVIEW REQ? NO
--- NOTE | 2016-11-20 12:30 | CODING QUERY NO DIAGNOSIS ---
TREATMENT RENDERED WITHOUT A DIAGNOSIS To promote full compliance with coding requirements relating to patient care, physician participation is requested in all cases of certified procedural coder uncertainty. Please assist us with providing a diagnosis/symptom for the test(s) below: A diagnosis/symptom was not documented on your Order. A valid diagnosis/symptom is required to bill all insurances. Please remember that we are unable to code a diagnosis of rule out, probable, possible, questionable, or suspected. Tests that require a diagnosis: * UA CLEAN CATCH DIAGNOSIS: * URINE CULTURE CLEAN CATCH DIAGNOSIS: Provider Signature: Date: Thank you Kaitlin Cardona [employer] Once completed, please kindly fax back to [phone] For questions please call [phone]
== END ==
LOC: C.LABFOXAN 08:36
PROVIDERS: ATTEND Internal Medicine
DX: R35.0 Frequency of micturition (principal)